=== PATIENT | male | born 1965 | race Caucasian/White ===

== ENCOUNTER 2020-02-13 11:50 | Observation (INO) ==
--- NOTE | 2020-02-09 11:25 | Anesthesiology Consultation ---
Date of Service February 09, 2020 Assessment & Plan (1) Encounter for pre-operative examination: Chart Review Chart Review: Acceptable Risk for Surgery (pending anesthesia evaluation and rapid Meehan test DOS ) and Patient NOT seen in Pre Admission Testing Pt initially seen in PAT dept on 12/29/19 for surgery scheduled 02/08/20. Pt had to be rescheduled due to bed space until 02/13/20. Pt was canceled after he arrived to hospital so new account number had to be made for procedure. *H/O difficult airway per patient; grade view III noted on 2010 TSA, good view with Glidescope. Per nursing assessment 12/21/2019, patient resides in [facility]. Travels to [facility] for work daily. Works construction. Wears mask while working and in public places. No known Covid positive contacts or Covid related symptoms. Pt's son attends [employer]- gets tested randomly for Covid- son last tested 11/30/19- tested Covid negative. Pt's initial preop Covid test 02/05/20= negative. Eval DOS for any increased PPE needed & 0 rule, if AGP. Rapid approved by Maria R, d/t patient's being rescheduled d/t bed space. History Surgery Operation Date: 02/13/20 14:00 Proposed Procedures p Left Total Knee Arthroplasty - Xu Arambula MD Height/Weight Height: 5 ft 10 in Weight: 127 kg Allergies Allergy/AdvReac Type Severity Reaction Status Date / Time No Known Allergies Allergy Unverified 12/21/19 09:25 Medications Home Medications Medication Instructions Recorded Confirmed Last Taken losartan 50 mg PO QAM 12/21/19 12/21/19 Unknown meloxicam 15 mg PO QAM 12/21/19 12/21/19 Unknown Past Medical History Medical History Anxiety no medications. Colon cancer "small polyp removed via colonoscopy +cancer) Hypertension Osteoarthritis Past Family History Family History Other No family history of adverse response to anesthesia Past Surgical History Surgical History H/O shoulder replacement left, [facility] [id number]. GRADE VIEW III, GLIDESCOPE USED. History of arthroscopy left knee History of colonoscopy History of endoscopic sinus surgery nasal polyps History of tonsillectomy S/P colonoscopic polypectomy With general anesthesia; was found on routine colo but felt too large for excision under MAC in endo suite. S/P umbilical hernia repair, follow-up exam Social History Smoking Status: Never smoker tobacco type: smokeless tobacco Hx Alcohol Use: Yes Alcohol type: beer alcohol intake frequency: a few times a week Hx Substance Use: No substance use type: does not use Testing Laboratory Results Laboratory Tests 12/29/19 12/29/19 12/29/19 13:38 13:38 13:38 WBC 7.74 Hgb 15.4 Hct 44.6 Plt Count 259 PT 11.0 INR 1.0 APTT 30.8 Sodium 139 Potassium 4.0 Chloride 106 Carbon Dioxide 26 BUN 16 Creatinine 1.00 Glucose 106 H Hemoglobin A1c 12/29/19 13:38 WBC Hgb Hct Plt Count PT INR APTT Sodium Potassium Chloride Carbon Dioxide BUN Creatinine Glucose Hemoglobin A1c 5.2 Electrocardiogram Date: 12/29/19 Findings: + NSR @ (63bpm) Chest X-Ray Date: 12/29/19 Findings: + NAD
--- NOTE | 2020-02-12 20:40 | History and Physical Report ---
DATE OF ADMISSION: 02/13/2020 CHIEF COMPLAINT: Chronic left knee pain. HISTORY OF PRESENT ILLNESS: This is a 55-year-old male patient of Dr. Arambula'davidson complaining of chronic left knee pain, longstanding, now progressively getting worse. The patient has failed conservative treatment including intraarticular injections, viscosupplementation, anti-inflammatories, home exercise program and the use of an student driving instructor brace. The patient has increased pain with weightbearing activities and his pain does interfere with his activities of daily living. The patient has been diagnosed with end-stage osteoarthritis per clinical and radiographic exams and wishes to proceed with a left total knee arthroplasty. PAST MEDICAL HISTORY: Hypertension and osteoarthritis. SOCIAL HISTORY: Nonsmoker and nondrinker. PAST SURGICAL HISTORY: Left shoulder replacement. FAMILY HISTORY: Noncontributory. MEDICATIONS: 1. Losartan 50 mg daily. 2. Mobic 15 mg daily. PHYSICAL EXAMINATION: GENERAL: Well-developed, well-nourished 55-year-old male in no acute distress. He is alert and oriented x3 and pleasant. HEENT: Normocephalic, atraumatic. Extraocular motions are intact. Pupils are equal, reactive to light. HEART: Regular rate and rhythm, no murmurs. LUNGS: Clear. ABDOMEN: Soft, nontender, bowel sounds present. EXTREMITIES: Left knee crepitation with range of motion, 5/5 strength. Range of motion of 0 to 125, varus deformity. Medial joint line tenderness. Neurologically and neurovascularly, he is intact in his left lower extremity. DIAGNOSES: Left knee end-stage osteoarthritis and hypertension. PLAN: The patient was advised of his diagnosis. Indications, risks, benefits, postop course have all been reviewed. The patient wished to proceed with a left total knee arthroplasty. Necessary consent forms, preoperative testing and clearances will be obtained.
[~2020-02-13 11:50] MED LIST: ACETAMINOPHEN 500 MG TAB PO SCH; BUPIVACAINE 0.25% 30 ML VIAL ONE; BUPIVACAINE 0.5 % 5 MG/1 ML PF 10ML VIAL ONE; CeleBREX 200 MG CAP PO SCH; DEXAMETHASONE SOD INJ 4 MG/ML VIAL ONE; EPINEPHrine INJ 1 MG/ML AMP ONE; FAMOTIDINE 20 MG TAB PO SCH; GABAPENTIN 600 MG DOSE PO SCH; GABAPENTIN 900 MG DOSE PO SCH; GENERAL ORDER PROBLEM SCH; LR 500ML BOLUS, THEN 15ML/HR IV SCH; METOCLOPRAMIDE HCL 10 MG TABLET PO SCH; ROPIVACAINE 0.5% HCL/PF 150 MG, BUPIVACAINE 0.5% MPF 30 ML, EPINEPHrine 30MG/30ML (OR U... INSTIL SCH; TRANEXAMIC ACID 1,000 MG **IV Intra-op IV SCH; TRANEXAMIC ACID 1,000 MG **IV Pre-op IV SCH; dexAMETHasone 4 MG TAB PO SCH
[2020-02-13] MEDS ORDERED: GABAPENTIN 300 MG CAP ONE (12:37)
[2020-02-13] MEDS ORDERED: fentaNYL citrate 100 MCG/2 ML VIAL ONE (13:22)
[2020-02-13] MEDS ORDERED: MIDAZOLAM HCL 1 MG/ML 2ML VIAL ONE ×2 (13:22→14:46)
[2020-02-13] MEDS ORDERED: ORTHO JOINT ANESTHETIC ONE (13:45)
[2020-02-13] MEDS ORDERED: BACITRACIN INJ 50,000 UNIT VIAL ONE (13:46)
--- NOTE | 2020-02-13 14:12 | History & Physical Bridge Note ---
Date of Service February 13, 2020 History & Physical Bridge Note I have examined the patient, reviewed the History & Physical and in the interval since the performance of the History & Physical I have noted the following changes of clinical significance: no changes noted
[2020-02-13] MEDS ORDERED: PROPOFOL IV EMULSION 10 MG/ML 20 ML VIAL IV ONE ×4 (14:46→15:41)
[2020-02-13] MEDS ORDERED: GLYCOPYRROLATE 0.2 MG/ML VIAL ONE (14:57)
[2020-02-13] MEDS ORDERED: KETAMINE 50 MG/5 ML SYRINGE ONE (14:57)
[2020-02-13] MEDS ORDERED: ONDANSETRON INJ 2 MG/ML 2 ML VIAL ONE (14:57)
[2020-02-13] MEDS ORDERED: fentaNYL citrate 100 MCG/2 ML VIAL IV PRN (15:54)
[2020-02-13] MEDS ORDERED: ePHEDrine sulfate 50 MG/ML AMP IV PRN (15:54)
[2020-02-13] MEDS ORDERED: ONDANSETRON INJ 2 MG/ML 2 ML VIAL IV PRN ×2 (15:54→18:50)
[2020-02-13] MEDS ORDERED: ATROPINE SULFATE 0.1 MG/ML 10ML SYR IV PRN (15:54)
[2020-02-13] MEDS ORDERED: BUPIVACAINE 0.5 % 5 MG/1 ML MPF 30ML VIAL ONE (16:22)
--- NOTE | 2020-02-13 17:16 | Post Operative Brief Note ---
Immediate Post Op Note v1 Date of Surgery February 13, 2020 Pre & Post Diagnosis Operation Date: 02/13/20 14:00 Pre-Op Diagnosis: Unilateral Primary Osteoarthritis, Left Knee Post-Op Diagnosis: Unilateral Primary Osteoarthritis, Left Knee I identified the patient and participated in the time-out.: Yes Procedure Operation Date: 02/13/20 14:00 Actual Procedures p Left Total Knee Arthroplasty(Left) - Xu Arambula MD Surgeon Xu Arambula MD Tube Buffer OSCAR Guzman Estimated Blood Loss 10 Findings Consistent with Post-Op Diagnosis Specimens Bone cuts Drains Hemovac Drain Anesthesia Type MAC Spinal Regional Complications none Disposition Accompanied Patient To Recovery: No Disposition: Recovery Room Overlapping Procedure I was immediately available: during the entire case.
--- NOTE | 2020-02-13 17:31 | Operative Report ---
Post Operative Report Pre & Post Diagnosis Operation Date: 02/13/20 14:00 Pre-Op Diagnosis: Unilateral Primary Osteoarthritis, Left Knee, obesity BMI 39.8 Post-Op Diagnosis: Unilateral Primary Osteoarthritis, Left Knee, prepatellar bursitis chronic, obesity BMI 39.8 I identified the patient and participated in the time-out.: Yes Procedure Operation Date: 02/13/20 14:00 Actual Procedures p Left Total Knee Arthroplasty(Left), prepatellar bursectomy, application superficial wound VAC- Xu Arambula MD Surgeon Xu Arambula MD Shaker Screen Operator OSCAR Guzman Estimated Blood Loss 10 Findings Consistent with Post-Op Diagnosis Specimens Bone cuts Drains 2 Hemovac Anesthesia Type MAC Spinal Regional Complications none Disposition Accompanied Patient To Recovery: No Disposition: Recovery Room Indications 55-year-old male who had an injury to his left knee had arthroscopic surgery with partial meniscectomy chondroplasty type procedure. He suffered progressive osteoarthritis over time and now is [id number]-[id number] medial compartment. Patient's had extensive conservative management including bracing therapy multiple injections. Description of Procedure Patient was taken to the operating room placed supine on the operating table and anesthetized under spinal MAC regional anesthesia. Exam under anesthesia demonstrated tight medial compartment no pseudolaxity varus knee stable ligaments other than some stretching out of the lateral collateral ligament. A pneumatic tourniquet was placed about the obese upper thigh of the left lower extremity. The left lower extremity was prepped and draped in usual fashion. The leg was elevated exsanguinated with an Esmarch bandage and the pneumatic was raised to 325 mm mercury. An anterior incision was made across the left knee. The skin was incised longitudinally subcutaneous flaps were elevated. Multiple chronic scarred bands of bursal tissue were identified crossing the prepatellar bursa and patella region down to the tibial tubercle. There was thickened chronic scarred inflamed prepatellar bursa tissue. Careful resection of all this thickened prepatellar bursitis was performed. Incision was then made through the medial retinaculum extending up into the mid third of the quadriceps tendon and extended down to the medial tibial tubercle. Intra-articular findings demonstrated varus knee with eburnated bone medial compartment loose body anterior to the tibia on the medial side moderate patellofemoral OA intact lateral compartment intact cruciate ligaments. The knee was exposed by excising the infrapatellar fat pad, excising the meniscal remnants and anterior cruciate ligament and loose body. Any inflamed synovial tissue was resected. The fat pad over the anterior femur was resected for placement of the component in that area. The lateral synovial bands were release. Patient had a tight knee and some synovial scar tissue from prior injury and surgery. The femur was exposed. The custom femoral cutting block was pinned in position. The distal femoral cutting block was applied. The distal femoral cut was made with the oscillating saw. The size 11, 4-in-1 cutting block was placed. The anterior and posterior chamfer cuts were made. The knee was extended and a subperiosteal peel lateral release was performed around the patella. The patella width was measured and width was reproduced using freehand cut technique. The 38 x 9.5 millimeter symmetrical patella was used. 3 drill holes are made for the pegs. The tibia was exposed. A custom tibial cutting block was positioned and drill holes were made for the cutting guide. Cutting guide was placed and the proximal cut was made with the oscillating saw. All osteophytes were resected. The lamina demographer was used to assess ligamentous balance and the ligaments were balanced in extension and flexion. This required a medial posterior medial release and pie crusting the MCL. The tibia was reexposed and measured for a size G tibial component. This was externally rotated in line with the tibial tubercle and the fixation pins were drilled. The proximal tibia was fashioned with the drill and punch. The size 11 CR femoral trial was inserted. The trial MC inserts were used. The 11 mm insert gave balanced ligaments through full range of motion. The patella tracked some liftoff slightly so I did a lateral release leaving the synovium intact and the patella tracked completely centrally with no touch technique. the trials were removed. The orthomix anesthetic cocktail was injected per protocol. The knee was then copiously irrigated with pulsatile lavage antibiotic solution with bacitracin. The final components were cemented with Simplex cement. The final components were Jahaira persona size 11 left CR femur, size G left tibia, left size 11 MC tibial bearing insert, 38 x 9.5 mm symmetrical patella. After the cement cured with the knee in full extension the Betadine soak was used per protocol. The knee joint was copiously irrigated with antibiotic solution with bacitracin. 2 drains were brought out laterally and connected to a Hemovac. The quadriceps tendon and medial retinaculum were closed with interrupted [id number] #1 Vicryl sutures. The knee was taken through a full range of motion and repair was secure. The subcutaneous tissues were closed with 2-0 Vicryl sutures and skin was closed with jay. A negative pressure superficial wound VAC was applied and the patient tolerated the procedure well. Nick MOORE my physician personnel security assistant, assisted in soft tissue retraction instrument management leg positioning the closure and will participate in the postoperative care of the patient. I attest to the content of the Intraoperative Record and any orders documented therein. Any exceptions are noted below.
--- NOTE | 2020-02-13 17:47 | XRay Report ---
XR knee LT 1 or 2V routine HISTORY: 55 years-old Male Surgical Post Op [knee total joint arthroplasty COMPARISON: None TECHNIQUE: 2 views of the left knee FINDINGS: Left knee total joint arthroplasty and patella resurfacing. Anterior midline skin jay are noted a long with expected postsurgical soft tissue swelling and deep tissue air with surgical drainage mahamed ter. No acute fracture or unexpected opaque foreign body. IMPRESSION: Left knee total joint arthroplasty and patella resurfacing with expected postoperative ch anges. ACT 112: Negative or not required by law. The above report was generated using voice recognition software. It may contain grammatical, syntax o r spelling errors. Electronically signed by: Chente Oh M.D. 02/13/2020 5:45 PM
--- NOTE | 2020-02-13 18:11 | Anesthesiology Progress Note ---
Date of Service February 13, 2020 Anesthesia Post Procedure Vital Signs Vital Signs: Temp Pulse Pulse Resp BP Pulse Ox 02/13/20 18:00 88 16 141/81 H 92 02/13/20 17:45 36.3 C L 77 16 134/82 94 02/13/20 17:35 77 17 122/81 92 02/13/20 17:25 84 18 125/77 92 02/13/20 17:17 36.6 C 88 18 130/90 95 02/13/20 12:55 36.7 C 74 18 147/99 H 93 02/13/20 12:19 36.9 C 75 18 150/97 H 95 Transfer of Care Handoff Completed per policy Notes Mental Status: alert / awake / arousable and participated in evaluation Patient Amnestic to Procedure: Yes Nausea / Vomiting: adequately controlled Pain: adequately controlled Airway Patency, RR, SpO2: stable & adequate BP & HR: stable & adequate Hydration State: stable & adequate Anesthetic Complications: no major complications apparent and Pt Satisfied with anesthetic care
[2020-02-13] MEDS ORDERED: bisacodyL 10 MG SUPP PR PRN (18:50)
[2020-02-13] MEDS ORDERED: NALOXONE HCL 0.4 MG/1 ML VIAL/CARP IV PRN (18:50)
[2020-02-13] MEDS ORDERED: HYDROmorphone INJ 0.5 MG/0.5 ML SYR IV PRN (18:50)
[2020-02-13] MEDS ORDERED: MAGNESIUM HYDROXIDE SUSP 30 ML UDC PO PRN (18:50)
[2020-02-13] MEDS ORDERED: diphenhydrAMINE Capsule 25 MG CAP PO PRN (18:50)
[2020-02-13] MEDS: SODIUM CHLORIDE 0.9% 1000ML 1,000 ML IV SCH (19:15)
--- NOTE | 2020-02-13 19:43 | Consultation ---
Date of Consultation February 13, 2020 Assessment & Plan (1) Status post total knee replacement, left: S/P L TKA POD # [address] Arambula EBL 10ml; Hemovac 40ml Tolerated procedure well Pain/wound management per Ortho Activity and therapy as directed by Ortho Encourage incentive spirometry and wean oxygen as able Monitor H&H (2) Hypertension: BP mildly elevated 150/90, likely in setting of pain Continue losartan Monitor (3) Mixed hyperlipidemia: Patient currently not on cholesterol-lowering medication Last fasting lipid panel 05/10/2019 revealed total cholesterol 225, LDL 152, HDL 32, triglycerides 204 Implement heart healthy diet (4) Tobacco abuse: Daily chewing tobacco user Encourage tobacco cessation (5) Obesity (BMI 30-39.9): BMI 39.8 encourage diet and lifestyle modifications (6) DVT prophylaxis: ASA twice daily per Ortho Disposition: Per primary Follow-up: PCP Dr. Faye upon discharge Patient was seen and examined in collaboration with Dr. Harkins, please see addendum Thank you for this consultation. We will follow the patient with you during their hospital stay. You can reach a [facility]/10 via pager @ [phone]. Supervising Physician Co-Signing Physician Notes Attending addendum: Patient seen and examined at bedside, care coordinated with JOANN Alexander This is a 55-year-old male status post left knee surgery for advanced DJD Recovering well postoperatively Physical exam: As per Arabella Ryder PA-C DJD of left knee: Status post knee replacement surgery Continue pain control PT OT as per orthopedics Hypertension: Continue outpatient meds: Losartan Patient remains medically stable, we will continue to follow during his hospital stay. Katherine Harkins MD History of Present Illness Requesting Physician: Dr. Arambula Reason for Consultation: Postop medical management Attending Physician: Xu Arambula MD History of Present Illness This is a 55-year-old male who has significant past medical history of HTN, mixed dyslipidemia, metabolic syndrome, chronic sinusitis, tobacco abuse disorder who presents for elective left total knee arthroscopy. We have been consulted for medical management. Currently he has no acute concerns or complaints. He feels well postoperatively and requesting meal. He currently denies any pain to the left knee, numbness or tingling. He has regained feeling to the left leg. He denies fever, chills, sweats, lightheadedness, dizziness, chest pain, shortness of breath, cough, nausea, vomiting, abdominal pain, diarrhea, melena, dysuria, increased urgency or frequency with urination. He has urinated postoperative without difficulty. Prior to procedure denies difficulty with BMs. Of significance he does chew half a can of tobacco daily. He denies any smoking. He does drink alcohol 1-2 times a week. His last drink was approximately 1 week ago. Mostly beer. He does have history of hypertension which he takes losartan as outpatient. Outpt records from [facility] reviewed. Had med clearance by Dr. Faye 01/12/20. Allergies Allergy/AdvReac Type Severity Reaction Status Date / Time No Known Allergies Allergy Verified 02/13/20 12:17 Home Medications Medication Instructions Recorded Confirmed Type losartan 50 mg PO QAM 12/21/19 02/13/20 History meloxicam 15 mg PO QAM 12/21/19 02/13/20 History Patient History Medical History (Updated 02/13/20 @ 19:48 by Arabella Gamble PA-C) Anxiety no medications. Colon cancer "small polyp removed via colonoscopy +cancer) Hypertension Mixed hyperlipidemia Osteoarthritis Tobacco abuse Surgical History (Updated 02/13/20 @ 19:42 by Arabella Gamble PA-C) H/O shoulder replacement left, [facility] [id number]. GRADE VIEW III, GLIDESCOPE USED. History of arthroscopy left knee History of colonoscopy History of endoscopic sinus surgery nasal polyps History of tonsillectomy S/P colonoscopic polypectomy With general anesthesia; was found on routine colo but felt too large for excision under MAC in endo suite. S/P umbilical hernia repair, follow-up exam Family History Father HLD (hyperlipidemia) Grandfather (Paternal) Cancer Grandmother (Maternal) Stroke Other No family history of adverse response to anesthesia Social History (Updated 02/13/20 @ 19:38 by Arabella Gamble PA-C) Smoking Status: Never smoker Second Hand Exposure: No; Do You Dip or Chew Tobacco: Yes; Hx Alcohol Use: Yes Alcohol type: beer Hx Substance Use: No Preferred Language: Upper Sorbian Communication Ability: Effective Marketing Manager Required: No Beliefs That Will Affect Care: None Current Living Situation: Spouse Feels Safe at Home: Yes Assistive Devices: Glasses Review of Systems Review of Systems: All systems reviewed & are unremarkable except as noted in HPI & below Physical Exam Physical Exam: Constitutional: WD/WN, vitals as above, NAD, sitting up in bed, pleasant, conversing easily Head: Normocephalic, Atraumatic Eyes: PERRL, conjunctivae normal, anicteric sclerae ENMT: external ear and nose normal, oropharynx normal Neck: trachea midline, no thyromegaly normal visual inspection Respiratory: normal respiratory effort, lungs clear, no audible wheeze, rales or rhonchi. Normal insp/exp effort, no accessory muscle use Cardiovascular: RRR, no edema, SCD/TEDs in place, Vessels: no JVD or carotid bruit Chest: normal inspection of chest Abdomen:protuberant abd, soft, nontender, ND Musculoskeletal: no cyanosis or clubbing, AROM to ext x 3, LLE not tested but is NVI distal to incision, L TKA Dressing CDI, hemovac in place with serosang drainage Skin: no rashes, warm and dry normal turgor Neurologic: PERRL, EOMI, accommodation nl, no face palsy, no dysarthria CN's II-XI intact bilaterally and moves all extremities Psychiatric: A+Ox3, euthymic affect Lymphatic: no cervical or axillary lymphadenopathy : deferred Results & Data (MN) Vital Signs (Past 12 Hours) Vital Signs Temp Pulse Pulse Resp BP Pulse Ox 02/13/20 18:50 36.4 C L 71 16 150/90 H 97 02/13/20 18:30 71 15 134/90 93 02/13/20 18:15 67 17 146/95 H 93 02/13/20 18:00 88 16 141/81 H 92 02/13/20 17:45 36.3 C L 77 16 134/82 94 02/13/20 17:35 77 17 122/81 92 02/13/20 17:25 84 18 125/77 92 02/13/20 17:17 36.6 C 88 18 130/90 95 02/13/20 12:55 36.7 C 74 18 147/99 H 93 02/13/20 12:19 36.9 C 75 18 150/97 H 95 Laboratory Results Preoperative lab work 12/29/2019 Hemoglobin 15.4, A1c 5.2, creatinine 1.0 Covid screen negative Diagnostic Findings CXR: FINDINGS: The heart is at the upper limits of normal in size. There is no failure. There is no focal pulmonary consolidation. There are no pleural effusions. There is a calcified left lower lobe granuloma. Degenerative changes are present within the dorsal spine..[ IMPRESSION: No active disease in the chest. Knee Xray L: FINDINGS: Left knee total joint arthroplasty and patella resurfacing. Anterior midline skin jay are noted along with expected postsurgical soft tissue swelling and deep tissue air with surgical drainage catheter. No acute fracture or unexpected opaque foreign body. IMPRESSION: Left knee total joint arthroplasty and patella resurfacing with expected postoperative changes. Medications Administered Discontinued Medications Acetaminophen (Acetaminophen 500 Mg Tab) 1,000 mg PO PREOP BENJI Stop: 02/13/20 18:00 Last Admin: 02/13/20 12:39 Dose: 1,000 mg Documented by: [id number] Bacitracin (Bacitracin Inj 50,000 Unit Vial) Confirm Administered Dose 50,000 units .ROUTE .STK-MED ONE Stop: 02/13/20 13:47 Last Admin: 02/13/20 16:58 Dose: 50,000 units Documented by: [id number] Bupivacaine HCl (Bupivacaine 0.5 % 5 Mg/1 Ml Mpf 30ml Vial) Confirm Administered Dose 30 ml .ROUTE .STK-MED ONE Stop: 02/13/20 16:23 Last Admin: 02/13/20 16:31 Dose: 30 ml Documented by: [id number] Celecoxib (Celebrex 200 Mg Cap) 200 mg PO PREOP BENJI Stop: 02/13/20 18:00 Last Admin: 02/13/20 12:39 Dose: 200 mg Documented by: [id number] Dexamethasone (Dexamethasone 4 Mg Tab) 8 mg PO PREOP BENJI Stop: 02/13/20 18:00 Last Admin: 02/13/20 12:39 Dose: 8 mg Documented by: [id number] Famotidine (Famotidine 20 Mg Tab) 20 mg PO PREOP BENJI Stop: 02/13/20 18:00 Last Admin: 02/13/20 12:39 Dose: 20 mg Documented by: [id number] Fentanyl Citrate (Fentanyl Citrate 100 Mcg/2 Ml Vial) 25 mcg IV Q5M PRN PRN Reason: PACU Use Only-Pain Stop: 02/13/20 23:54 Last Admin: 02/13/20 18:24 Dose: 25 mcg Documented by: [id number] Gabapentin (Gabapentin 300 Mg Cap) Confirm Administered Dose 600 mg .ROUTE .STK- MED ONE Stop: 02/13/20 12:38 Last Admin: 02/13/20 12:39 Dose: 600 mg Documented by: [id number] Gabapentin (Gabapentin 900 Mg Dose) 900 mg PO PREOP BENJI Stop: 02/13/20 18:00 Last Admin: 02/13/20 18:56 Dose: Not Given Documented by: [id number] Ropivacaine 150 mg/Bupivacaine HCl 30 ml/Epinephrine HCl 0.15 mg/Ketorolac Tromethamine 30 mg/Dexamethasone 4 mg/ Ketamine HCl 10 mg/ Clonidine HCl 100 mcg/ Sodium Chloride 93.35 mls @ 0 mls/hr INSTIL PREOP BENJI Stop: 02/13/20 06:01 Last Admin: 02/13/20 16:28 Dose: 93.35 mls/hr Documented by: [id number] Tranexamic Acid (Tranexamic Acid / 0.7% Nacl) 1,000 mg in 100 mls @ 600 mls/hr IV TODAY@0600 BENJI Stop: 02/13/20 18:00 Last Infusion: 02/13/20 14:24 Dose: 0 mls/hr Documented by: [id number] Admin: 02/13/20 14:13 Dose: 600 mls/hr Documented by: [id number] Tranexamic Acid (Tranexamic Acid / 0.7% Nacl) 1,000 mg in 100 mls @ 600 mls/hr IV TODAY@0600 BENJI Stop: 02/13/20 18:00 Last Infusion: 02/13/20 16:34 Dose: 0 mls/hr Documented by: [id number] Admin: 02/13/20 16:21 Dose: 600 mls/hr Documented by: [id number] Lactated Ringer's (Lr) 1,000 mls @ 15 mls/hr IV .Q24H BENJI Stop: 02/13/20 18:00 Last Infusion: 02/13/20 14:38 Dose: 0 mls/hr Documented by: [id number] Admin: 02/13/20 12:38 Dose: 15 mls/hr Documented by: [id number] Cefazolin Sodium (Ancef 3000mg) 72.5 mls @ 130 mls/hr IV PREOP BENJI; Protocol Stop: 02/13/20 18:00 Last Admin: 02/13/20 14:48 Dose: 130 mls/hr Documented by: [id number] Metoclopramide HCl (Metoclopramide Hcl 10 Mg Tablet) 10 mg PO PREOP BENJI Stop: 02/13/20 18:00 Last Admin: 02/13/20 12:39 Dose: 10 mg Documented by: [id number] Miscellaneous (Ortho Joint Anesthetic ) Confirm Administered Dose 1 ea .ROUTE .STK-MED ONE Stop: 02/13/20 13:46 Last Admin: 02/13/20 16:29 Dose: Not Given Documented by: [id number] ECG Rate (beats per minute): 63 Rhythm: normal sinus
[2020-02-13] MEDS ORDERED: SENNA 8.6 MG TAB PO SCH (21:00)
[2020-02-13] MEDS: ACETAMINOPHEN 500 MG TAB PO SCH (22:00)
[2020-02-13] MEDS: CeleBREX 200 MG CAP PO SCH (22:00)
[2020-02-13] MEDS: ASPIRIN 81 MG ECTAB PO SCH (22:01)
[2020-02-13] MEDS: ceFAZolin 2000MG 2,000 MG/15 ML SYR IV SCH (22:01)
[2020-02-13] MEDS: DOCUSATE SODIUM 100 MG CAP PO SCH (22:01)
[2020-02-13] MEDS: oxyCODONE HCL IR 5 MG TAB (IMMEDIATE RELEASE) PO PRN (23:36)
[2020-02-14] MEDS: ACETAMINOPHEN 500 MG TAB PO SCH ×2 (06:01→13:32)
[2020-02-14] MEDS: ceFAZolin 2000MG 2,000 MG/15 ML SYR IV SCH (06:01)
[2020-02-14] MEDS: oxyCODONE HCL IR 5 MG TAB (IMMEDIATE RELEASE) PO PRN ×2 (06:11→10:20)
[2020-02-14] MEDS: SODIUM CHLORIDE 0.9% 1000ML 1,000 ML IV SCH (06:12)
[2020-02-14 06:19] LABS: Hematocrit (blood only) 41.4 % (42-52); Hemoglobin 14.2 g/dL (14.0-18.0); Mean Corpuscular Hemoglobin 29.8 pg (25-34); Mean Corpuscular Hgb Conc 34.3 g/dL (32-36); Mean Platelet Volume 10.2 fL (7.4-10.4); Platelet Count 282 K/uL (130-400); RDW Coefficient of Variation 13.1 % (11.5-14.5); Red Blood Count 4.76 M/uL (4.7-6.1); White Blood Count 14.95 K/uL (4.8-10.8)
[2020-02-14 06:37] LABS: Calcium 8.3 mg/dl (8.5-10.1); Creatinine Clr Calc Pharmacy 127.8 ml/min; Est GFR (African American) 112.6; Est GFR (Non-African American) 97.2; Potassium 3.9 mmol/L (3.5-5.1)
--- NOTE | 2020-02-14 07:49 | Orthopedic Progress Note ---
Date of Service February 14, 2020 Assessment & Plan (1) Osteoarthritis of left knee: Postop day 1 status post left total knee arthroplasty. Leukocytosis-patient is asymptomatic at this time. Is likely secondary to surgical stress and preoperative steroids. PT/OT protocols. Weightbearing as tolerated. DVT prophylaxis-aspirin p.o. twice daily, BONNIE Abdullahi. Pain management as written. DC planning-patient is planning on outpatient PT upon discharge. Admission and Anticipated Discharge Date Admission Date: February 13, 2020 Subjective Postop day 1 Patient sitting up in bed watching TV. Having a small amount of pain this morning around the knee but he states it is mild. Denies any shortness of breath, chest pain, lightheadedness. No other complaints at this time. Physical Exam Physical Exam: Dressings are clean, dry, and intact. Calves are soft and nontender. Neurovascular is intact. Toes are mobile. He has good dorsiflexion and plantarflexion of the left foot and ankle. Hemovac drainage was 230 mL from the previous shift Results & Data ([facility]) Vital Signs (Past 12 Hours) Vital Signs Temp Pulse Resp BP Pulse Ox 02/14/20 03:20 36.5 C 73 16 149/88 H 95 02/13/20 22:47 36.5 C 94 H 18 149/97 H 96 02/13/20 21:35 36.3 C L 92 H 18 164/92 H 96 02/13/20 20:33 36.7 C 76 16 154/85 H 94 02/13/20 19:58 36.4 C L 77 16 152/91 H 93 Laboratory Results Laboratory Results WBC 14.95 K/uL (4.8-10.8) H 02/14/20 05:28 RBC 4.76 M/uL (4.7-6.1) 02/14/20 05:28 Hgb 14.2 g/dL (14.0-18.0) 02/14/20 05:28 Hct 41.4 % (42-52) L 02/14/20 05:28 MCV 87.0 fL (80-100) 02/14/20 05:28 MCH 29.8 pg (25-34) 02/14/20 05:28 MCHC 34.3 g/dL (32-36) 02/14/20 05:28 RDW Std Deviation 42.0 fL (36.4-46.3) 02/14/20 05:28 RDW Coeff of Sunshine 13.1 % (11.5-14.5) 02/14/20 05:28 Plt Count 282 K/uL (130-400) 02/14/20 05:28 MPV 10.2 fL (7.4-10.4) 02/14/20 05:28 Sodium 138 mmol/L (136-145) 02/14/20 05:28 Potassium 3.9 mmol/L (3.5-5.1) 02/14/20 05:28 Chloride 107 mmol/L (98-107) 02/14/20 05:28 Carbon Dioxide 25 mmol/L (21-32) 02/14/20 05:28 Anion Gap 6.0 (3-11) 02/14/20 05:28 BUN 18 mg/dl (7-18) 02/14/20 05:28 Creatinine 0.87 mg/dl (0.6-1.4) 02/14/20 05:28 Est Cr Clr Drug Dosing 127.8 ml/min 02/14/20 05:28 Est GFR ( Amer) 112.6 02/14/20 05:28 Est GFR (Non-Af Amer) 97.2 02/14/20 05:28 BUN/Creatinine Ratio 21.0 (10-20) H 02/14/20 05:28 Glucose 132 mg/dl (70-99) H 02/14/20 05:28 Calcium 8.3 mg/dl (8.5-10.1) L 02/14/20 05:28 COVID-19 Eval Order Covid19 IDNow [facility] 02/13/20 Unknown SARS-CoV-2, RNA, NAAT NEGATIVE (NEGATIVE) 02/13/20 Unknown Blood Type A Positive 02/13/20 12:15 Antibody Screen NEGATIVE 02/13/20 12:15
[2020-02-14] MEDS ORDERED: MULTIVITAMIN TAB PO SCH (09:00)
[2020-02-14] MEDS ORDERED: LOSARTAN POTASSIUM 50 MG TAB PO SCH (09:00)
[2020-02-14] MEDS: DOCUSATE SODIUM 100 MG CAP PO SCH (09:12)
[2020-02-14] MEDS: CeleBREX 200 MG CAP PO SCH (09:13)
[2020-02-14] MEDS: ASPIRIN 81 MG ECTAB PO SCH (09:13)
[2020-02-14 12:04] VITALS: BP 150/83; PULSE 81; TEMP 97.9; O2SAT 95
--- NOTE | 2020-02-14 14:19 | Hospitalist Progress Note ---
Date of Service February 14, 2020 Assessment & Plan (1) Status post total knee replacement, left: S/P day # 1 Left Total Knee Arthroplasty, prepatellar bursectomy, application superficial wound VAC performed by Dr Arambula No post complication pain control Will discharge home today with the hemovac and follow up tomorrow at Dr. Arambula's office to remove the Vac fall precaution PT/OT as per Ortho recommendation Continue incentive spirometry (2) Hypertension: BP mildly elevated 150/90, likely in setting of pain Continue losartan Continue monitor BP (3) Mixed hyperlipidemia: Patient currently not on cholesterol-lowering medication Last fasting lipid panel 05/10/2019 revealed total cholesterol 225, LDL 152, HDL 32, triglycerides 204 Continue follow a low cholesterol diet (4) Tobacco abuse: Daily chewing tobacco user Counseling on tobacco cessation (5) Obesity (BMI 30-39.9): BMI 39.8 encourage diet and lifestyle modifications (6) DVT prophylaxis: ASA twice daily per Ortho Disposition: Per primary Follow-up: PCP Dr. Faye upon discharge Thank you for this consultation. We will follow the patient with you during their hospital stay. You can reach a member of the [facility] Hospitalist Team 19/10 via pager @ [phone]. Admission and Anticipated Discharge Date Admission Date: February 13, 2020 Subjective Pt was seen and examined Sitting in bed with no distress Pt said that pain is tolerable He said that he is doing ok Denies any chest pain, palpitation, dizziness and SOB Physical Exam Physical Exam: General- No acute distress Head- atraumatic Eyes- PERRL, EOMI, ENT- oropharynx clear Neck- supple, no JVD Lungs- clear to auscultation Heart- regular rhythm; no murmur Abdomen- normal bowel sounds, soft, nontender Extremities- no calf tenderness Neuro- alert, oriented x 3; PERRL, EOMI; no facial palsy; no dysarthria Skin- warm & dry Results & Data Results & Data ([facility]) Vital Signs (Past 12 Hours) Vital Signs Temp Pulse Resp BP BP Pulse Ox 02/14/20 12:04 36.6 C 81 16 150/83 H 95 02/14/20 09:11 87 136/87 02/14/20 08:13 36.7 C 69 16 135/84 92 02/14/20 03:20 36.5 C 73 16 149/88 H 95
== END 2020-02-14 15:08 | disposition home or self-care (01) ==
LOC: 3E 11:50 → ASU 11:50

== ENCOUNTER 2024-01-05 08:49 | Observation (INO) ==
--- NOTE | 2024-01-04 08:38 | Anesthesiology Consultation ---
Date of Service January 04, 2024 Assessment & Plan (1) Encounter for pre-operative examination: - Infectious disease screening: Per assessment on 12/30/23: No known recent infectious disease contacts or current infectious disease symptoms. - Hx glidescope intubation: Umbilical hernia repair open with mesh (04/13/13): Grade I view, Glidescope#4, ETT 8.0 at [facility] [place]. - PCP visit (12/31/23): "Pt has acceptable risk for this low risk surgery" Chart Review Chart Review: Acceptable Risk for Surgery and Patient NOT seen in Pre Admission Testing History Surgery Operation Date: 01/05/24 09:45 Proposed Procedures p Left Shoulder Convert a Total Shoulder Arthroplasty to Reverse Total Shoulder Arthroplasty with Extensive Debridement - Xu Arambula MD Height/Weight Height: 5 ft 10 in Weight: 122.47 kg Allergies Allergy/AdvReac Type Severity Reaction Status Date / Time No Known Allergies Allergy Verified 12/30/23 13:46 Medications Home Medications Medication Instructions Recorded Confirmed Last Taken losartan 50 mg tablet 50 mg PO QAM 12/21/19 12/30/23 01/21/21 05:30 atorvastatin 10 mg tablet 10 mg PO QAM 12/19/20 12/30/23 01/21/21 05:30 Allergy Tab 1 tab PO DAILY 09/14/22 12/30/23 Unknown acetaminophen 500 mg tablet 1,000 mg PO Q8H PRN Pain 09/14/22 12/30/23 Unknown Past Medical History Medical History Anxiety "Well controlled" No meds Colon cancer Hypertension Per records Mixed hyperlipidemia Per records Obesity (BMI 30-39.9) Osteoarthritis Past Family History Family History Father HLD (hyperlipidemia) Grandfather (Paternal) Cancer Grandmother (Maternal) Stroke Other No family history of adverse response to anesthesia Past Surgical History Surgical History (Updated 01/04/24 @ 08:36 by Tresa Cleary) H/O shoulder replacement Left History of arthroscopy left knee History of colonoscopy History of endoscopic sinus surgery nasal polyps History of tonsillectomy History of total knee replacement Left 01/2020 Right 2020 Hx of umbilical hernia repair S/P colonoscopic polypectomy With general anesthesia; was found on routine colo but felt too large for excision under MAC in endo suite Social History Smoking Status: Never smoker tobacco type: smokeless tobacco Do You Dip or Chew Tobacco: Yes (advised) Hx Alcohol Use: Yes Alcohol type: beer alcohol intake frequency: a few times a week Hx Substance Use: No substance use type: does not use Lab Results Anesthesia Preop Results Results Anesthesia Widget: WBC 8.46 K/ul (4.8-10.8) 12/31/23 Hgb 14.9 g/dl (14.0-18.0) 12/31/23 Hct 43.5 % (42.0-52.0) 12/31/23 Plt 278 K/uL (130-400) 12/31/23 Na 139 mmol/L (136-145) 12/31/23 K 3.7 mmol/L (3.5-5.1) 12/31/23 Cl 104 mmol/L (98-107) 12/31/23 CO2 27 mmol/L (21-32) 12/31/23 BUN 18 mg/dl (6-23) 12/31/23 Creat 0.94 mg/dl (0.6-1.4) 12/31/23 Glucose Level 111 mg/dl (70-99(Fasting)) H 12/31/23 PT 11.4 Seconds (9.0-12.0) 12/31/23 PTT 28 Seconds (21-31) 12/31/23 INR 1.1 (0.9-1.1) 12/31/23 Urine Color Yellow 12/31/23 Urine Appearance Clear (Clear) 12/31/23 Urine pH 6.5 (4.5-7.5) 12/31/23 Urine Specific [place] 1.022 (1.000-1.030) 12/31/23 Urine Protein Negative (Negative) 12/31/23 Urine Glucose (UA) Negative (Negative) 12/31/23 Urine Ketones Negative (Negative) 12/31/23 Urine Blood Negative (Negative) 12/31/23 Urine Nitrite Negative (Negative) 12/31/23 Urine Bilirubin Negative (Negative) 12/31/23 Urine Urobilinogen Negative (Negative) 12/31/23 Urine Leukocyte Esterase Negative (Negative) 12/31/23 Blood Type A Positive 12/31/23 Testing Electrocardiogram Date: 01/03/24 Findings: + NSR @ (81) Chest X-Ray Date: 12/31/23 FINDINGS: Lung volumes are normal. Lungs are clear. There is no pneumothorax or pleural effusion. Cardiomegaly is unchanged. Mediastinal contours are normal. There is no evidence for pulmonary edema. Left shoulder arthroplasty is partially imaged. IMPRESSION: No acute cardiopulmonary findings.
--- NOTE | 2024-01-04 19:33 | History & Physical Report ---
Date of Service January 04, 2024 Assessment & Plan (1) Traumatic complete tear of rotator cuff: Plan: Acute traumatic rotator cuff tear status post anatomic total shoulder replacement with evidence of osteolysis of the glenoid and humeral component which were pre-existing to the shoulder injury and rotator cuff tear however this and trauma may have led to loosening of the glenoid. Revision of the anatomic replacement to a reverse total shoulder replacement is treatment of choice for this condition. Plan currently she just augmented glenoid baseplate and possibly some bone substitute may be required to fill in any bone defect. Encounter type: initial encounter Laterality: left Qualified Code(s): S46.012A - Strain of muscle(s) and tendon(s) of the rotator cuff of left shoulder, initial encounter (2) Loosening of total shoulder replacement: Encounter type: initial encounter Qualified Code(s): T84.038A - Mechanical loosening of other internal prosthetic joint, initial encounter; Z96.619 - Presence of unspecified artificial shoulder joint (3) Osteolysis of left shoulder: History of Present Illness Primary Care Provider: Marya Faye, DO 58-year-old male who had an injury at work when he fell on his outstretched left arm felt as though he dislocated his shoulder. He has had significant pain weakness and inability raise his arm overhead. Minimal improvement since this injury which occurred at work. Patient had index total shoulder replacement procedure on that left shoulder 02/25/2011. Patient denies headaches, sweats, fevers, chills, double vision, blurred vision, cough, sore throat, dysphagia, chest pain, sob, wheezing, n/v/d/c, numbness, tingling, fatigue, urinary symptoms, mood disorders. ROS positive for mild snoring and being difficult intubation with anesthesia Allergies Allergy/AdvReac Type Severity Reaction Status Date / Time No Known Allergies Allergy Verified 12/30/23 13:46 Home Medications Medication Instructions Recorded Confirmed Type losartan 50 mg tablet 50 mg PO QAM 12/21/19 12/30/23 History atorvastatin 10 mg tablet 10 mg PO QAM 12/19/20 12/30/23 History Allergy Tab 1 tab PO DAILY 09/14/22 12/30/23 History acetaminophen 500 mg tablet 1,000 mg PO Q8H PRN Pain 09/14/22 12/30/23 History Past Med/Surg History Problem List (Updated 01/04/24 @ 19:50 by Xu Arambula MD) 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 Traumatic complete tear of rotator cuff Encounter for pre-operative examination Medical History Obesity (BMI 30-39.9) Mixed hyperlipidemia Per records Hypertension Per records Osteoarthritis Colon cancer Anxiety "Well controlled" No meds Surgical History Hx of umbilical hernia repair History of total knee replacement Left 01/2020 Right 2020 S/P colonoscopic polypectomy With general anesthesia; was found on routine colo but felt too large for excision under MAC in endo suite H/O shoulder replacement Left History of arthroscopy left knee History of colonoscopy History of endoscopic sinus surgery nasal polyps History of tonsillectomy Family History Father HLD (hyperlipidemia) Grandfather (Paternal) Cancer Grandmother (Maternal) Stroke Other No family history of adverse response to anesthesia Social History Smoking Status: Never smoker Second Hand Exposure: No; Do You Dip or Chew Tobacco: Yes (advised); Tobacco Cessation Education Requested by Patient: No Hx Alcohol Use: Yes Alcohol type: beer Hx Substance Use: No Preferred Language: [place] Communication Ability: Effective House Officer Required: No Beliefs That Will Affect Care: None marital status: Current Living Situation: Spouse current occupational status: employed current occupation: CONSTRUCTION WORK Other Information That Helps Us Care for You: No Feels Safe at Home: Yes Safety Concerns: Feels Safe At This Time Assistive Devices: Glasses Assistive Devices Comment: glasses for driving only Review of Systems All systems reviewed & are unremarkable except as noted in HPI & below Physical Exam Constitutional: WD/WN, vitals as above Respiratory: normal respiratory effort; no respiratory distress Cardiovascular: Rate/Rhythm: regular rate and regular rhythm Musculoskeletal: Left shoulder is protracted and depressed with benign-appearing surgical scars active and passive painful range of motion. Active abduction 40 degrees active flexion 40 degrees passive flexion 80 degrees passive abduction 60 degrees. Shoulder is weak with diminished strength and positive belly press test. Skin: no rashes, warm and dry Neurologic: normal touch/pain/proprioception Psychiatric: A+Ox3, euthymic affect Results & Data Laboratory Results CBC sed rate CRP normal Diagnostic Findings Radiographs demonstrate normally located shoulder with osteolysis around the calcar and proximal humerus shaft with no loosening of the humeral component. There is some lucency and erosion inferior to the glenoid component concerning for osteolysis around that component as well and could have some micromotion based on bone scan findings which are not suggestive of infection but could be suggestion of loosening. Implant alignment based on review of previous x-rays demonstrate no change in alignment of the glenoid component. Preop CT scanning with blueprint preoperative templating suggests contained defect. Ultrasound evaluation demonstrates complete tearing subscapularis tendon with failure of repair with partial tearing of the supraspinatus and infraspinatus.
[~2024-01-05 08:49] MED LIST changes: -ACETAMINOPHEN 500 MG TAB PO SCH; -BUPIVACAINE 0.25% 30 ML VIAL ONE; -CeleBREX 200 MG CAP PO SCH; -DEXAMETHASONE SOD INJ 4 MG/ML VIAL ONE; -EPINEPHrine INJ 1 MG/ML AMP ONE; -FAMOTIDINE 20 MG TAB PO SCH; -GABAPENTIN 600 MG DOSE PO SCH; -GABAPENTIN 900 MG DOSE PO SCH; -GENERAL ORDER PROBLEM SCH; -LR 500ML BOLUS, THEN 15ML/HR IV SCH; -METOCLOPRAMIDE HCL 10 MG TABLET PO SCH; -ROPIVACAINE 0.5% HCL/PF 150 MG, BUPIVACAINE 0.5% MPF 30 ML, EPINEPHrine 30MG/30ML (OR U... INSTIL SCH; -TRANEXAMIC ACID 1,000 MG **IV Intra-op IV SCH; -TRANEXAMIC ACID 1,000 MG **IV Pre-op IV SCH; -dexAMETHasone 4 MG TAB PO SCH
[2024-01-05] MEDS: GABAPENTIN 600 MG DOSE PO SCH (09:55)
[2024-01-05] MEDS: CeleBREX 200 MG CAP PO SCH (09:55)
[2024-01-05] MEDS: FAMOTIDINE 20 MG TAB PO SCH (09:55)
[2024-01-05] MEDS: dexAMETHasone**PF** 10 MG/ML VIAL IV SCH (09:56)
[2024-01-05] MEDS: ACETAMINOPHEN 500 MG TAB PO SCH ×2 (09:56→22:12)
[2024-01-05] MEDS: METOCLOPRAMIDE HCL 10 MG TABLET PO SCH (09:56)
[2024-01-05] MEDS: VANCOMYCIN HCL 2,000 MG in SODIUM CHLORIDE 0.9% 500 ML IV SCH (09:57)
--- NOTE | 2024-01-05 10:40 | History & Physical Bridge Note ---
Date of Service January 05, 2024 History & Physical Bridge Note I have examined the patient, reviewed the History & Physical and in the interval since the performance of the History & Physical I have noted the following changes of clinical significance: no changes noted
[2024-01-05] MEDS ORDERED: NALOXONE HCL 0.4 MG/1 ML VIAL/CARP IV PRN ×2 (11:35→19:32)
[2024-01-05] MEDS ORDERED: ONDANSETRON INJ 2 MG/ML 2 ML VIAL IV PRN ×2 (11:35→19:32)
[2024-01-05] MEDS ORDERED: FLUMAZENIL 0.1 MG/1 ML 10 ML VIAL IV PRN (11:35)
[2024-01-05] MEDS ORDERED: ePHEDrine sulfate 50 MG/ML AMP IV PRN (11:35)
[2024-01-05] MEDS ORDERED: fentaNYL citrate PF 100 MCG/2 ML VIAL IV PRN (11:35)
[2024-01-05] MEDS ORDERED: HYDROmorphone INJ 1 MG/ML SYRINGE IV PRN (11:35)
[2024-01-05] MEDS ORDERED: PROMETHAZINE HCL 6.25 MG in SODIUM CHLORIDE 0.9% 50 ML IV PRN (11:35)
[2024-01-05] MEDS ORDERED: LABETALOL HCL IV 5 MG/ML 20ML IV PRN (11:35)
[2024-01-05] MEDS ORDERED: ATROPINE SULFATE 0.1 MG/ML 10ML SYR IV PRN (11:35)
[2024-01-05] MEDS ORDERED: fentaNYL citrate PF 100 MCG/2 ML VIAL ONE (11:38)
[2024-01-05] MEDS ORDERED: MIDAZOLAM HCL 1 MG/ML 2ML VIAL ONE (11:38)
[2024-01-05] MEDS: TRANEXAMIC ACID 1,000 MG **IV Pre-op IV SCH (13:40)
[2024-01-05] MEDS: ceFAZolin 3000MG 3,000 MG/72.5 ML BAG IV SCH (13:50)
[2024-01-05] MEDS ORDERED: ROCURONIUM BROMIDE 10 MG/ML 5 ML VIAL IV ONE ×2 (14:41→17:12)
[2024-01-05] MEDS ORDERED: LIDOCAINE 2% 2 ML VIAL/AMP(20MG/ML) INFIL ONE (14:41)
[2024-01-05] MEDS ORDERED: ONDANSETRON INJ 2 MG/ML 2 ML VIAL ONE (14:41)
[2024-01-05] MEDS ORDERED: PROPOFOL IV EMULSION 10 MG/ML 20 ML VIAL IV ONE ×2 (14:41→14:46)
[2024-01-05] MEDS ORDERED: PHENYLEPHRINE HCL 10 MG/ML VIAL ONE (14:48)
--- OUTSIDE RECORDS SUMMARY | 2024-01-05 15:13 | External Medical Summary | Summary of Care ---
Author Name Unknown Organization [facility] Address [address] [place] [address] Phone [phone] Care Team Providers Care Fur Tinter Name Role Phone Marya Faye DO Primary Care Provider Encounter Details Date Type Department Care Team (Late st Contact Info) Description 01/03/2024 Orders Only Family Practice [facility] [address] [place] [address] Marya Faye DO [address] [facility] [place] [address] Allergies Active Allergy Reactions Criticality Noted Date Comments Lisinopril 06/11/2017 Dizzy, lightheaded. documented as of this encounter (statuses as of 01/03/2024) Medications Medication Sig Dispensed Refills Start Date End Date Status Fluticasone Propionate 50 MCG/ACT Nasal Suspension (Flonase)Indication s:Acute maxillary sinusitis, recurrence not specified Administer 2 Sprays into each nostril daily. 16 g 11 11/04/2020 Active Additional Information Patient not taking.Reported on 12/31/2023 Benzonatate 100 MG Oral Capsule (Tessalon Perlcrystal)Indications: Upper respiratory tract infection, unspecified type Take 1 Capsule by mouth 3 times a day as needed for Cough. Do not cut, crush, or chew. 50 Capsule 1 02/15/2023 Active Additional Information Patient not taking.Reported on 12/31/2023 Losartan Potassium 50 MG Oral Tablet (Cozaar)Indications :Essential hypertension with goal blood pressure less than 140/90 Take 1 Tablet by mouth in the morning. 90 Tablet 3 07/02/2023 Active Atorvastatin Calcium 10 MG Oral Tablet (Lipitor)Indication s:Mixed dyslipidemia TAKE 1 TABLET BY MOUTH EVERY DAY IN THE MORNING 90 Tablet 2 11/19/2023 Active documented as of this encounter (statuses as of 01/03/2024) Active Problems Problem Noted Date Diagnosed Date Class 2 severe obesity due t o excess calories with serious comorbidity and body mass index (BMI) of 39.0 to 39.9 in adult 07/02/2023 History of colon polyps 01/01/2023 Seborrheic keratosis 06/26/2022 Mixed dyslipidemia 05/01/2016 IFG (impaired fasting glucose) 05/01/2016 Metabolic syndrome 05/01/2016 Difficult intubation 11/29/2015 Overview: 29 Nov 2015: MAC 4: no structures seen. [facility] D: Cormack grade one view; still difficult because stylet needed a short, tight curve to reach the glottis. A longer initial stylet curve could not be centered on the glottis due to glancing off the laryngeal supraglottic structures. 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 Other allergic rhinitis Overview: ICD-10 update of inactive term documented as of this encounter (statuses as of 01/03/2024) Resolved Problems Problem Noted Date Diagnosed Date Resolved Date Panic disorder 06/02/2005 12/23/2012 Esophageal reflux 02/20/2000 12/23/2012 documented as of this encounter (statuses as of 01/03/2024) Immunizations Name Administration Dates Next Due COVID-19 mRNA, LNP-s, No Pre serve, 2-Dose Series (Moderna) 06/20/2020,05/23/2020 PPD 03/10/2011 Seasonal Influenza Vac., MDV, IM, 0.5 mL (Fluzon e) 12/23/2012 Seasonal Influenza, PF, 6 M & above, IM , (FluLaval or Fluzone) 01/01/2023,01/12/2020 TD - Tetanus/Diptheria (ADULT) 09/22/2005 TDAP (age 10 and older)(Boostrix) 01/01/2023, documented as of this encounter Social History Tobacco Use Types Packs/Day Years Used Date Smoking Tobacco: Never Smokeless Tobacco: Current Chew Alcohol Use Standard Drinks/Week Comments Yes 0 (1 standard drink = 0.6 oz pur e alcohol) 2-3/week PHQ-2 Answer Date Recorded PHQ-2 Score 0 11/23/2019 Hunger Vital Sign Answer Date Recorded Worried About Running Out of Food in the Last Ye ar Never true 11/23/2019 Ran Out of Food in the Last Year Never true 11/23/2019 Utilities Answer Date Recorded Do you have trouble paying y our heating, water, or electric bill? (Adult - for ages 18 years and over) Not on file 09/14/2023 Is your family able to pay t he heat, water, or electric bill? (Household - for ages 0-17 years) Not on file 09/14/2023 Does your family have access to good internet? (Household - for ages 0-17 years) Not on file 09/14/2023 Social Connections Answer Date Recorded How often do you feel lonely or isolated from those around you? (Adult - for ages 18 years and over) Not on file 09/14/2023 Sex and Gender Information Value Date Recorded Sex Assigned at Not on file Gender Identity Not on file Sexual Orientation Not on file Job Start Date Occupation Industry Not on file Not on file Not on file documented as of this encounter Plan of Treatment Scheduled Procedures Name Priority Associated Diagnoses Date/Ti me COLONOSCOPY FLEXIBLE PROXIMA L DIAGNOSTIC Recall History of colonic polyps Health Maintenance Due Date Last Done Comments Hepatitis B Vaccine (1 of 3 - 19+ 3-dose series) 01/12/1984 Cologuard 2010 Fecal Occult Blood Test 2010 Sigmoidoscopy 2010 Zoster Vaccines (1 of 2) 2015 Depression Screening 11/22/2020 11/23/2019 COVID-19 Vaccine ( - season) 2023 06/20/2020, 05/23/2020 Influenza Vaccine (FLU shot) (#1) 2023 01/01/2023, 01/12/2020, 06/11/2017 (Refused), Additional history exists GFR 06/17/2024 12/31/2023, 05/28, 06/26/2022, Additional history exists Albumin/Creatinine Ratio 06/26/2025 06/26/2022 Diabetes Screening 06/17/2026 12/31/2023, 0 06/18/2023, 06/26/2022, Additional history exists Colonoscopy 11/21/2027 11/20/2022, 10/28, 08/02/2015, Additional history exists Colorectal Cancer Screening 11/21/2027 Lipid Panel 06/17/2028 06/18/2023, 05/29, 11/07/2020, Additional history exists DTap/Tdap Vaccines (3 - Td or Tdap) 01/01/2033 01/01/2023, 12/23/2012, 09/22/2005, Additional history exists RETIRED - COLONOSCOPY-EVERY 5 YRS AGES 18-100 Discontinued 11/20/2022, 11/20/2022, 08/02/2015, Additional history exists HPV (Gardasil) Vaccine Aged Out No lo nger eligible based on patient's age to complete this topic MENINGOCOCCAL (MENACTRA/MENVEO) Aged Out No longer eligible based on patient's age to complete this topic Pneumococcal Vaccine: Pediatrics (0 to 5 Years) and At-Risk Patients (6 to 64 Years) Aged Out No longer eligible based on patient's age to complete this topic documented as of this encounter Medical Devices Not on filedocumented as of this encounter Procedures Procedure Name Priority Date/Time Associated Diagnosis Comments CHEMISTRY-OUTSIDE Routine 12/31/2023 documented in this encounter Results * (ABNORMAL) CHEMISTRY-OUTSIDE (12/31/2023) Not all results display below - see scan for full detail OUTSIDE LAB (SEE SCANNED REPORT) Comment:SEE SCAN - BMP, PTIN R, CBCD, BLOOD TYPE CREATININE 0.94 0.6 - 1.4 MG/DL OUTSIDE LAB (SEE SCANNED REPORT) EGFR 93.97 ML/MIN OUTSIDE LA B (SEE SCANNED REPORT) POTASSIUM 3.7 3.5 - 5.1 MMOL/L OUTSIDE LAB (SEE SCANNED REPORT) GLUCOSE 111(A) 70 - 99 MG/DL OUTSIDE LAB (SEE SCANNED REPORT) HOURS FASTING OUTSID E LAB (SEE SCANNED REPORT) TRIGLYCERIDES-OUT SIDE LAB OUTSIDE LAB (SEE SCANNED REPORT) CHOLESTEROL-OUTSI DE LAB OUTSIDE LAB (SEE SCANNED REPORT) HDL-OUTSIDE LAB OUTS MARK LAB (SEE SCANNED REPORT) CHOL/HDL RATIO-OUTSIDE LAB OUTSIDE LA B (SEE SCANNED REPORT) LDL (CALCULATED)-OUTS MARK LAB OUTSIDE LAB (SEE SCANNED REPORT) LDL (DIRECT MEASURE)-OUTSIDE LAB OUTSIDE LAB (SEE SCANNED REPORT) HEMOGLOBIN, J8A-SPVIUNF LAB OUTSIDE LAB (SEE SCANNED REPORT) PHOSPHORUS-OUTSID E LAB OUTSIDE LAB (SEE SCANNED REPORT) PTH-OUTSIDE LAB OUTS MARK LAB (SEE SCANNED REPORT) MICROALBUMIN RATIO-OUTSIDE LAB OUTSIDE LA B (SEE SCANNED REPORT) PROTEIN, UA-OUTSIDE LAB OUTSIDE LAB (SEE SCANNED REPORT) HGB 14.9 14.0 - 18.0 G/DL OUTSIDE LAB (SEE SCANNED REPORT) 12/31/2023 Xu Arambula MD LABORATORY OUTSIDE LAB (SEE SCANNED REPORT) documented in this encounter Advance Directives * Full Code (Latest Code Status on File) Date Activated Date Inactivated Comments 11/29/2015 7:26 AM 11/30/2015 2:37 AM This order ref lects the patients wishes and were consensually agreed upon. Question Answer Comments Discussion of Advance Directives occurred with: Not Discussed Does the patient have a Living Will? No Does the patient have Health Care Power of Attor magy? No Care Teams Fur Tinter Relationship Specialty Start Date End Date Marya Faye DO [address] [place] [address] PCP - General Family Medicine 11/17/16 documented as of this encounter
--- OUTSIDE RECORDS SUMMARY | 2024-01-05 15:13 | External Medical Summary | Summary of Care ---
Author Name Unknown Organization [facility] Address [address] [facility] [place] [address] Phone [phone] Care Team Providers Care Gastrointestinal Technician Name Role Phone Marya Faye DO Primary Care Provider Reason for Visit * Reason Comments Follow Up Following with ortho for left shoulder, surgery next week Encounter Details Date Type Department Care Team (Late st Contact Info) Description 12/31/2023 3:00 PM EDT Office Visit [facility] [address] [facility] [place] [address] Marya Faye DO [address] [place] [address] Preoperative general physical examination* Allergies Active Allergy Reactions Criticality Noted Date [...] 12/31/2023 Benzonatate 100 MG Oral Capsule (Tessalon Perles)Indications: Upper respiratory tract infection, unspecified type Take [...] Nov 2015: MAC 4: no structures seen. [facility]: Cormack grade one view; still [...] on file documented as of this encounter Last Filed Vital Signs Vital Sign Reading Time Taken Comments Blood Pressure 130/84 12/31/2023 3:11 PM EDT Pulse 88 12/31/2023 3:11 PM EDT Temperature 36.9 C (98.5 F) 12/31/2023 3:11 PM ED T Respiratory Rate 16 12/31/2023 3:11 PM EDT Oxygen Saturation - - Inhaled Oxygen Concentration - - Weight 131.5 kg (290 lb) 12/31/2023 3:11 PM EDT Height 177.8 cm (5' 10") 12/31/2023 3:11 PM EDT Body Mass Index 41.61 12/31/2023 3:11 PM EDT documented in this encounter Progress Notes * Marya Faye, DO - 12/31/2023 3:22 PM EDT Subjective: Benedicto Rubin is a 58 year old male. Chief Complaint Patient presents with Follow Up Following with ortho for left shoulder, surgery next week HPI: Patient's past medical, surgical, family, and social history were reviewed. Medications, allergies, immunizations, and health care maintenance screenings were also reviewed. Preop clearance requested by Dr. Arambula, [facility] [place], for L reverse total shoulder arthroplasty for L rotator cuff injury of subscapularis, supraspinatus, and infraspinatus tendons, at [facility], planned for 01/05/2024 Hypertension Follow Up The patient is taking medications as instructed. No medication side effects are described. The patient is not monitoring home blood pressures. The patient denies any acute focal neurologic symptoms. The patient reports no chest pain, no orthopnea, and no dyspnea on exertion. The patient denies intermittent claudication symptoms. PHM: Patient Active Problem List Diagnosis Other allergic rhinitis ADVANCE DIRECTIVE INFORMATION Tobacco abuse disorder Sinusitis, chronic Snoring Tympanosclerosis Dysfunction of eustachian tube Umbilical hernia Essential hypertension with goal blood pressure less than 140/90 Difficult intubation Mixed dyslipidemia IFG (impaired fasting glucose) Metabolic syndrome Seborrheic keratosis History of colon polyps Class 2 severe obesity due to excess calories with serious comorbidity and body mass index (BMI) of39.0 to 39.9 in adult (HCC) Current Outpatient Medications Medication Sig Dispense Refill Atorvastatin Calcium 10 MG Oral Tablet (Lipitor) TAKE 1 TABLET BY MOUTH EVERY DAY IN THE MORNING 90Tablet 2 Losartan Potassium 50 MG Oral Tablet (Cozaar) Take 1 Tablet by mouth in the morning. 90 Tablet 3 Benzonatate 100 MG Oral Capsule (Tessalon Perles) Take 1 Capsule by mouth 3 times a day as needed for Cough. Do not cut, crush, or chew. (Patient not taking: Reported on 12/31/2023) 50 Capsule 1 Fluticasone Propionate 50 MCG/ACT Nasal Suspension (Flonase) Administer 2 Sprays into each nostril daily. (Patient not taking: Reported on 12/31/2023) 16 g 11 No current facility-administered medications for this visit. Review of patient's allergies indicates: Allergen Reactions Lisinopril Dizzy, lightheaded. Objective: BP 130/84 | Pulse 88 | Temp 36.9 C (98.5 F) | Resp 16 | Ht 1.778 m (5' 10") | Wt 131.5 kg (290 lb) | BMI 41.61 kg/m | BSA 2.55 m Physical Exam: General: alert, healthy, and no distress Head: Normocephalic, No masses, lesions, tenderness or abnormalities Neck: supple, no adenopathy, no bruits, thyroid normal size, non-tender, without nodularity Heart: regular rate & rhythm, no murmur, and no gallops Lungs: chest symmetric with normal AP diameter, no chest deformities noted, no chest wall tenderness, lungs clear to auscultation Pulses: carotid=2/4 w/o bruits Extremities: less than 2 second capillary refill, no joint deformities, effusion, or inflammation Latest Reference Range & Units 04/23/20 10:40 11/07/20 08:17 11/07/20 08:21 12/27/20 00:00 01/20/21 00:00 01/23/21 00:00 06/26/22 15:31 06/26/22 15:36 11/20/22 10:07 06/18/23 09:55 Triglycerides <=174 mg/dL 291 (H) 125 174 146 Cholesterol <200 mg/dL 219 (H) 154 170 165 NON-HDL CHOLESTEROL 0 - 159 mg/dL 192 (H) Non-HDL Cholesterol <=159 mg/dL 120 137 128 HDL Cholesterol >39 mg/dL 27 (L) 34 (L) 33 (L) 37 (L) LDL Cholesterol <=129 mg/dL 134 (H) 95 102 99 LDL Cholesterol (Direct Measure) 0 - 129 mg/dL NOT APPLICABLE SODIUM 135 - 146 mmol/L 140 140 139 140 POTASSIUM 3.5 - 5.1 mmol/L 4.4 4.2 3.7 (E) 4.2 (E) 4.2 4.4 CHLORIDE 98 - 107 mmol/L 102 104 102 103 CO2 22 - 32 mmol/L 24 23 25 27 BUN 6 - 20 mg/dL 17 18 18 17 CREATININE 0.6 - 1.2 mg/dL 1.1 1.1 0.99 (E) 0.99 (E) 1.0 1.0 EGFR >=60 mL/min >60.0 78.6 85.4 (E) 84.8 (E) >90 85 ANION GAP 7 - 15 mmol/L 13 12 10 GLUCOSE 70 - 120 mg/dL 116 91 (E) 128 ! (E) 97 99 CALCIUM 8.4 - 10.2 mg/dL 9.3 9.2 9.6 9.1 Protein 6.0 - 8.3 g/dL 7.4 7.2 Estimated Average Glucose <126 mg/dL 105 Hemoglobin A1C 4.0 - 5.6 % 5.3 5.3 HGB 14.0 - 18.0 G/DL 14.4 (E) 13.6 ! (E) [id number] LAB NEGATIVE NEGATIVE (E) Albumin 3.8 - 5.0 g/dL 4.7 4.5 AST 10 - 50 U/L 21 20 ALT 10 - 50 U/L 38 32 Alkaline Phosphatase 35 - 130 U/L 78 73 Bilirubin, Total <=1.2 mg/dL 0.3 0.7 SURGICAL PATHOLOGY Rpt PROTEIN, UA-OUTSIDE LAB NEGATIVE NEGATIVE (E) Albumin / Creatinine Ratio, Urine <30 mg/g Creat <9 Protein/ Creatinine Ratio, Urine <150 mg/g 61 72 PROTEIN/CREAT RATIO <150 mg/g 56 Albumin, Random Urine mg/dL <1.20 Protein, Random Urine mg/dL 15 10 6 Creatinine, Random Urine mg/dL 268 165 133 83 ASSESSMENT/PLAN: Preoperative general physical examination (Primary) Pt has acceptable risk for this low risk surgery Hold ASA and any other OTC nsaid, MVI for 10 days Pt to continue all current meds Early OOB, PT and OT Defer anti coagulation to orthopedic PAT labs reviewed 30 min spent with patient, reviewing history, performing physical exam, reviewing labs, studies, specialist OVNs, and reports, educating and coordinating care, discussing treatment, and completing this note Marya Faye DO documented in this encounter Nursing Notes * Monae Maguire LPN - 12/31/2023 3:10 PM EDT The patient has been properly identified by confirmation of name and date of . Chief Complaint Patient presents with Follow Up Following with ortho for left shoulder, surgery next week documented in this encounter Plan of Treatment Scheduled Procedures [...] 01/12/2020, 06/11/2017 (Refused), Additional history exists GFR 12/30/2024 12/31/2023, 05/28, 06/26/2022, Additional history exists Albumin/Creatinine Ratio 06/26/2025 06/26/2022 Diabetes Screening 12/30/2026 12/31/2023, 0 06/18/2023, 06/26/2022, Additional history exists [...] Not on filedocumented as of this encounter Visit Diagnoses Diagnosis Preoperative general physical examination- Primary Other specified pre-operative examination documented in this encounter Advance Directives * [...] Power of Attor magy? No Care Teams Gastrointestinal Technician Relationship Specialty Start Date End Date Marya Faye DO [address] [place] [address] PCP - General Family Medicine 11/17/16 documented as of this encounter
--- OUTSIDE RECORDS SUMMARY | 2024-01-05 15:13 | External Medical Summary | Summary of Care ---
Author Name Unknown Organization [facility] Address [address] [facility] [place] [address] Phone [phone] Care Team Providers Care Advisory Application Developer Name Role Phone Marya Faye DO Primary Care Provider Reason for Visit * Reason Comments Follow Up Following with ortho for left shoulder, surgery next week Encounter Details Date Type Department Care Team (Late st Contact Info) Description 12/31/2023 3:00 PM EDT Office Visit [facility] [address] [facility] [place] [address] Marya Faye DO [address] [place] [place] [address] Preoperative general physical examination* Allergies Active Allergy [...] Nov 2015: MAC 4: no structures seen. [facility] Cormack grade one view; still [...] reviewed. Preop clearance requested by Dr. Arambula, [facility], for L reverse total shoulder arthroplasty for L rotator cuff injury of subscapularis, supraspinatus, and infraspinatus tendons, at [facility], planned for 01/05/2024 Hypertension Follow Up The [...] 18.0 G/DL 14.4 (E) 13.6 ! (E) [id number] LAB NEGATIVE NEGATIVE (E) Albumin 3.8 - [...] Power of Attor magy? No Care Teams Advisory Application Developer Relationship Specialty Start Date End Date Marya Faye DO [address] [place] [address] PCP - General Family Medicine 11/17/16 documented as of this encounter
[2024-01-05] MEDS ORDERED: GLYCOPYRROLATE 0.2 MG/ML VIAL ONE (15:14)
[2024-01-05] MEDS ORDERED: diphenhydrAMINE 50 MG/ML VIAL ONE (15:14)
[2024-01-05] MEDS ORDERED: SUGAMMADEX SODIUM 200 MG/2 ML VIAL IV ONE (16:02)
[2024-01-05] MEDS ORDERED: ceFAZolin 330 MG/ML 1 GM VIAL ONE (17:04)
[2024-01-05] MEDS: ceFAZolin 3,000 MG in DEXTROSE 5% 50 ML IV ONE (17:50)
[2024-01-05] MEDS: TRANEXAMIC ACID 1,000 MG **IV Intra-op IV SCH (17:54)
--- NOTE | 2024-01-05 18:45 | XRay Report ---
XR shoulder LT min 2V routine CLINICAL HISTORY: Post shoulder surgery TECHNIQUE: 3 views of the left shoulder were obtained. Comparison: Comparison is made to left shoulder radiographs 11/27/2022 FINDINGS: Patient is status post shoulder arthroplasty with expected postsurgical changes including soft tissue swelling and subcutaneous emphysema. No periarticular lucency or hardware fracture is seen. IMPRESSION: Expected postoperative appearance status post placement of shoulder arthroplasty. ACT 112: Negative or not required by law. Electronically signed by: Hiro Palma M.D. 01/05/2024 6:44 PM
--- NOTE | 2024-01-05 18:54 | Operative Report ---
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 I identified the patient and participated in the time-out.: Yes Procedure Operation Date: 01/05/24 11:55 Actual Procedures Left Shoulder revision of an anatomic total shoulder replacement to a reversed total shoulder replacement with revision of both glenoid and humeral components. Debridement of synovium and inflammatory tissue response with explantation humeral and glenoid components.- Xu Arambula MD Surgeon Xu Arambula MD Biological Engineer León MOORE Estimated Blood Loss 200 Findings Consistent with Post-Op Diagnosis Specimens Frozen section soft tissue implant bone interface inflammatory tissue. Drains 2 Hemovac Anesthesia Type General Regional Complications none Disposition Disposition: Recovery Room Indications 58-year-old male who injured his shoulder in a fall and had marked pain and inability to raise his arm. He felt as though he dislocated his shoulder. Ultrasound suggested partial tearing of the rotator cuff supraspinatus infraspinatus and tearing of the subscapularis. Radiographs demonstrate normally located shoulder with extensive osteolysis around the glenoid component with a bone scan showing increased signal there not consistent with infection but consistent with loosening. Humeral component has no loosening. There is osteolysis around the proximal humeral component. Description of Procedure The patient was taken to the operating room and anesthetized under regional block and general anesthetic. The patient was positioned on the operating table in a 30 beachchair position with a towel roll under the medial border of the left scapula. The arm was draped free to be able to manipulate the shoulder as needed. The left upper extremity was prepped and draped in usual sterile fashion. Exam demonstrated moderate obesity around the left upper arm and shoul sharon. Benign scar no signs of infection or drainage. Range of motion 70 degrees external rotation 90 degrees abduction and 150 degrees forward flexion. An anterior deltopectoral approach was performed. A longitudinal incision was made in the deltopectoral interval through his prior scar utilizing 80% of this scar. The skin was incised sharply. Subcutaneous flaps were elevated off the fascia. The cephalic vein was not present. The patient had a previous biceps tenodesis with transfer the biceps tendon long head to the short head of the biceps conjoined tendon. This biceps tenodesis was intact and well-healed. The scarred clavipectoral fascia was divided at the lateral margin of the conjoined tendon and extended up to the CA ligament. Thickened bursal scar tissue was dissected off of the subscapularis repair which was noted to be intact with tendinopathy but there were multiple areas of foreign body reaction with yellow scarred inflammatory tissue around the ends of the sutures. The suture material and this inflammatory material was excised with a rongeur and scalpel. The supraspinatus and infraspinatus had some tendinopathy but were intact. There was scar tissue between the rotator cuff and subdeltoid region and this was all released to mobilize the shoulder.The upper centimeter of the pectoralis was released for inferior exposure. The rotator interval was opened up down to the glenoid and to the bicipital groove area. Incision was carried down through the bicipital groove down to the pectoralis tendon on the bone. The subscapularis tendon was taken down off the lesser tuberosity using a subperiosteal peel type dissection. the arm was gradually externally rotated exposing the humeral head of the prosthesis. There was marked inflammatory response around the calcar region medially to the neck of the prosthetic and extended posterior and anterior with similar yellow scar tissue with inflammatory type synovitis. This tissue was sent for frozen section and there was no active inflammation with white cells per high-power field. All of this synovitic type scar tissue was removed demonstrating cavities into the proximal metaphyseal bone but the implant itself was solidly fixed on the humeral side. When humeral head was better exposed a tuning fork was used to separate the head from the stem. Flexible osteotomes were then used around the stem and then a slaphammer device used to disimpact the humerus from the shaft. Reamers from the Biomet kit were used to open up the canal and then further reamers from the Tornier revive revision stem were used up to a size 11 which had the appropriate fit and fill. Proximal 11 body was utilized and also fit well on broaching. A cut protector was placed over the implant. A Fukuda retractor was placed into the joint retracting the humerus was retracted posterior. Glenoid findings demonstrated the glenoid component was broken there was significant wear on the glenoid component more superiorly and it was 1 large polyethylene fragment that broken off and the central bone ingrowth peg was also broken leading fragments still within the bone of the glenoid. There was marked inflammatory response c onsistent with osteolysis related to polyethylene wear. All of this tissue was typical yellow scar tissue similar to the response over the suture material. Retractors were placed to expose the glenoid and I dissected around the edge of the glenoid with electrocautery and a Herr elevator staying on bone and exposing the glenoid completely. There was a large contained defect with multiple cavities and the bone. Extensive debridement was performed using pituitary rongeur several other rongeur's curettes to remove all of this inflammatory tissue. The bone was irrigated. Based on preoperative CT scanning we chose the site for the pin placement chosen by the plan. I chose to use a baseplate with a standard back. I placed the trial over the area of intension look like we will get bone contact so this was held in position and the guidewire was placed. We had good solid bone contact with the guidewire. The baseplate reamer for a 25 mm baseplate was utilized. After reaming I was able to get 3 areas of good bone contact that would stabilize the implant. The reamer for the boss was utilized. At this point after copious irrigation mixed Genex calcium sulfate/calcium phosphate material and what it was in the working phase we used 5 cc to fill the voids holding the screw insertion device that filled the area for the boss of the implant and filled the other cavities around this and allowed this to harden for 15 minutes. This time the central area was irrigated and the reamer was used on reverse and light irrigation performed. I chose to use a +3 offset 25 mm baseplate. The guide for the central drill hole was utilized and this was measured at 35 mm. The 35 x 6.5 mm center screw was placed into the 25+3 mm baseplate and this was screwed in position with good fixation. We used superior and inferior and anterior posterior screws all with good fixation. The large spicules of bone around the periphery of the glenoid were removed with rongeur's so that we could place a [address]. After further irrigation the 42 mm standard glenoid sphere was impacted onto the baseplate and the security screw tightened and we went on to trial reduction. +0 high offset tray was placed and we tried the poly trial inserts however there is still some minor shuck with longitudinal traction so we had to increase the baseplate to a +6 mm high offset tray and then with a +6 mm trial reversed poly implant there was stable range of motion no shuck. The final component was assembled. The final component was was the 11 mm fully coated revive stem 90 mm assembled to the 40 mm proximal 11 mm body using the 13 mm screw and cap. This was then impacted into the humerus and 20 degrees of retroversion with a tight press-fit. It was reduced to the glenoid sphere. After the stem was implanted the +6 mm high offset tray placed with a high offset superior in position. This was impacted onto the stem and we did another trial reduction which verified the +6 insert was appropriate so then the +6 reversed polyethylene insert for 42 mm diameter head was impacted into the tray and then this was reduced to the glenoid sphere and stability was verified. There was 150 degrees of forward elevation 80 degrees abduction and 70 degrees of external rotation with stable range of motion. I was unable to repair the subscapularis due to the offset and inferior center of rotation. Wound was irrigated with saline and Xperience solution. We did irrigate the baseplate prior to placing the polyethylene into the baseplate prior to the reduction. Xperience was used for that as well. The pectoralis was repaired with #2 FiberWire [id number] sutures. The wound was copiously irrigated with Xperience. 2 Hemovac drains were placed. The deltopectoral interval was closed with [id number] #1 Vicryl sutures. The subcutaneous tissues were closed with 2-0 Vicryl sutures. The skin was closed with surgical jay. Sterile dressings were applied and a shoulder immobilizer. León MOORE my physician fundraising assistant assisted in the procedure to the entire procedure including patient positioning arm positioning prepping and draping soft tissue retraction instrument management suture management and performed the subcutaneous and skin closure and will participate in the postoperative care of the patient. I attest to the content of the Intraoperative Record and any orders documented therein. Any exceptions are noted below.
--- NOTE | 2024-01-05 19:10 | Anesthesiology Progress Note ---
Date of Service January 05, 2024 Anesthesia Post Procedure Vital Signs Vital Signs: Temp Pulse Resp BP Pulse Ox O2 Del Method O2 Flow Rate 01/05/24 19:00 90 19 151/96 H 98 Nasal Cannula 3 01/05/24 18:50 98 H 18 165/97 H 96 Nasal Cannula 3 01/05/24 18:40 103 H 19 176/100 H 96 Oxymask 5 01/05/24 18:34 36 C L 94 H 18 179/107 H 95 Oxymask 5 01/05/24 09:35 36.9 C 75 20 145/98 H 95 Room Air Pain Intensity Left Shoulder: Pain Intensity: 1 Transfer of Care Handoff Completed per policy Notes Mental Status: alert / awake / arousable Patient Amnestic to Procedure: Yes Nausea / Vomiting: adequately controlled Pain: adequately controlled Airway Patency, RR, SpO2: stable & adequate BP & HR: stable & adequate Hydration State: stable & adequate Anesthetic Complications: no major complications apparent
[2024-01-05] MEDS ORDERED: KETOROLAC TROMETHAMINE 15 MG/ML VIAL IV PRN (19:32)
[2024-01-05] MEDS ORDERED: diphenhydrAMINE Capsule 25 MG CAP PO PRN (19:32)
[2024-01-05] MEDS ORDERED: METOCLOPRAMIDE HCL INJ 5 MG/ML 2 ML VIAL IV PRN (19:32)
[2024-01-05] MEDS ORDERED: bisacodyL 10 MG SUPP PR PRN (19:32)
[2024-01-05] MEDS ORDERED: HYDROmorphone INJ 0.5 MG/0.5 ML SYR IV PRN (19:32)
[2024-01-05] MEDS ORDERED: ALUMINUM/MAGNESIUM SUSP 30 ML UDC PO PRN (19:32)
[2024-01-05] MEDS ORDERED: TAMSULOSIN HCL 0.4 MG CAP PO PRN (19:32)
[2024-01-05] MEDS ORDERED: MAGNESIUM HYDROXIDE SUSP 30 ML UDC PO PRN (19:32)
[2024-01-05 20:02] VITALS: RESP 18
[2024-01-05] MEDS: DOCUSATE SODIUM 100 MG CAP PO SCH (22:12)
[2024-01-05] MEDS: ASPIRIN 325 MG ECTAB PO SCH (22:12)
[2024-01-05] MEDS: SODIUM CHLORIDE 0.9% 1,000 ML IV SCH (22:12)
[2024-01-05] MEDS: SENNA 8.6 MG TAB PO SCH (22:12)
[2024-01-05] MEDS: ceFAZolin 2000MG 2,000 MG/15 ML SYR IV SCH (22:13)
[2024-01-06] MEDS: TRANEXAMIC ACID / 0.7% NACL 1,000 MG/100 ML BAG IV SCH (00:07)
[2024-01-06 03:17] VITALS: PULSE 84
[2024-01-06 06:22] LABS: Basophils # (auto) 0.03 K/uL (0.00-0.20); Basophils % (auto) 0.2 %; Eosinophils # (auto) 0.01 K/uL (0.00-0.50); Eosinophils % (auto) 0.1 %; Hematocrit (blood only) 41.7 % (42.0-52.0); Hemoglobin 14.2 g/dl (14.0-18.0); Immature Granulocytes # (auto) 0.07 K/uL (0.01-0.20); Immature Granulocytes % (auto) 0.4 %; Lymphocytes # (auto) 2.33 K/uL (1.20-3.40); Lymphocytes % (auto) 12.9 %; Mean Corpuscular Hemoglobin 29.2 pg (25.0-34.0); Mean Corpuscular Hgb Conc 34.1 g/dL (32.0-36.0); Mean Corpuscular Volume 85.8 fL (80.0-100.0); Mean Platelet Volume 9.8 fL (9.4-12.4); Monocytes # (auto) 1.09 K/uL (0.11-0.59); Neutrophils # (auto) 14.57 K/uL (1.40-6.50); Neutrophils % (auto) 80.4 %; Platelet Count 323 K/uL (130-400); RDW Standard Deviation 40.2 fL (36.4-46.3); Red Blood Count 4.86 M/uL (4.70-6.10)
[2024-01-06 06:41] LABS: BUN Creatinine Ratio 15.4 (10-20); Calcium 8.5 mg/dl (8.6-10.3); Creatinine Clr Calc Pharmacy 104.4 ml/min; Potassium 4.2 mmol/L (3.5-5.1)
[2024-01-06 07:31] VITALS: BP 127/79; TEMP 98.4; O2SAT 94
[2024-01-06] MEDS: dexAMETHasone 10 MG in SYRINGE 0 ML IV SCH (07:34)
--- NOTE | 2024-01-06 07:48 | Consultation ---
Date of Consultation January 06, 2024 Assessment & Plan (1) Loosening of total shoulder replacement: 58-year-old male with past medical significant for dyslipidemia, impaired fasting glucose, chronic sinusitis, difficult intubation, hypertension, obesity, tobacco use disorder, status post left shoulder surgery. Patient seems to had fell at work on his outstretched left arm. And had significant pain and weakness and inability to raise his arm. Patient had history of total shoulder replacement on that shoulder in January 2011. Also found to have acute traumatic rotator cuff tear. Status postsurgery and tolerated the procedure okay. Resting comfortably. Denies any pain. No blurred vision. No nausea. Has some sore throat from the procedure. Denies any chest pain. No shortness of breath, no nausea, no abdominal pain. Micturating okay. Ambulating in the room okay. Loosening of left total shoulder replacement Rotator cuff tear S/p surgery Management as per orthopedics Hypertension On losartan Hyperlipidemia On statin Morbid obesity Needs counseling DVT prophylaxis and disposition Per orthopedics History of Present Illness Reason for Consultation: Status post left shoulder surgery Attending Physician: Xu Arambula MD History of Present Illness 58-year-old male with past medical significant for dyslipidemia, impaired fasting glucose, chronic sinusitis, difficult intubation, hypertension, obesity, tobacco use disorder, status post left shoulder surgery. Patient seems to had fell at work on his outstretched left arm. And had significant pain and weakness and inability to raise his arm. Patient had history of total shoulder replacement on that shoulder in January 2011. Also found to have acute traumatic rotator cuff tear. Status postsurgery and tolerated the procedure okay. Resting comfortably. Denies any pain. No blurred vision. No nausea. Has some sore throat from the procedure. Denies any chest pain. No shortness of breath, no nausea, no abdominal pain. Micturating okay. Ambulating in the room okay. Past med history. As mentioned above Past surgical history. Colonoscopy. Flexible sigmoidoscopy. Left knee arthroscopy. Left shoulder arthroplasty. Excision of rectal tumor. Umbilical hernia repair. Social history. . No smoking. Alcohol 2-3 times a week. No drug use. Family history. Father had heart disorder. Hyperlipidemia. Mother had heart disorder. Maternal grandmother had stroke. Paternal grandmother had heart disorder. Paternal grandfather had stomach cancer. Allergies Allergy/AdvReac Type Severity Reaction Status Date / Time No Known Allergies Allergy Verified 01/05/24 09:32 Home Medications Medication Instructions Recorded Confirmed Type losartan 50 mg tablet 50 mg PO QAM 12/21/19 01/05/24 History atorvastatin 10 mg tablet 10 mg PO QAM 12/19/20 01/05/24 History Allergy Tab 1 tab PO DAILY 09/14/22 01/05/24 History acetaminophen 500 mg tablet 1,000 mg PO Q8H PRN Pain 09/14/22 01/05/24 History Patient History Medical History Obesity (BMI 30-39.9) Mixed hyperlipidemia Per records Hypertension Per records Osteoarthritis Colon cancer Anxiety "Well controlled" No meds Surgical History Hx of umbilical hernia repair History of total knee replacement Left 01/2020 Right 2020 S/P colonoscopic polypectomy With general anesthesia; was found on routine colo but felt too large for excision under MAC in endo suite H/O shoulder replacement Left History of arthroscopy left knee History of colonoscopy History of endoscopic sinus surgery nasal polyps History of tonsillectomy Family History Father HLD (hyperlipidemia) Grandfather (Paternal) Cancer Grandmother (Maternal) Stroke Other No family history of adverse response to anesthesia Social History Smoking Status: Never smoker Second Hand Exposure: No; Do You Dip or Chew Tobacco: Yes (advised); Tobacco Cessation Education Requested by Patient: No Hx Alcohol Use: Yes Alcohol type: beer Hx Substance Use: No Preferred Language: Czech Communication Ability: Effective Toolroom Clerk Required: No Beliefs That Will Affect Care: None marital status: Current Living Situation: Spouse current occupational status: employed current occupation: CONSTRUCTION WORK Other Information That Helps Us Care for You: No Feels Safe at Home: Yes Safety Concerns: Feels Safe At This Time Assistive Devices: Glasses Assistive Devices Comment: glasses for driving only Review of Systems Review of Systems: All systems reviewed & are unremarkable except as noted in HPI & below Physical Exam Physical Exam: General- Not n distress Head- atraumatic Eyes- EOMI. ENT- oropharynx clear Neck- supple, no JVD. Lungs- clear to auscultation , no wheezing or crackles. Heart- regular rhythm; no murmur, no gallop. Abdomen- normal bowel sounds, soft, nontender, no distension Extremities- s/p left shoulder surgery. Dressing intact and in sling. Neuro- alert, oriented EOMI; no facial palsy; no dysarthria; moves extremities Results & Data Vital Signs (Past 12 Hours) Vital Signs Temp Pulse Resp BP Pulse Ox O2 Del Method O2 Flow Rate 01/06/24 03:00 37 C 84 18 108/73 93 Room Air 01/05/24 23:00 36.7 C 101 H 18 110/73 93 Room Air 01/05/24 21:30 36.8 C 114 H 18 113/77 96 Room Air 01/05/24 20:38 36.8 C 126 H 18 147/85 H 94 Room Air 01/05/24 20:01 36.8 C 95 H 18 118/78 90 Room Air 01/05/24 19:10 36.5 C 89 21 129/82 98 Nasal Cannula 3 01/05/24 19:00 90 19 151/96 H 98 Nasal Cannula 3 01/05/24 18:50 98 H 18 165/97 H 96 Nasal Cannula 3 01/05/24 18:40 103 H 19 176/100 H 96 Oxymask 5 01/05/24 18:34 36 C L 94 H 18 179/107 H 95 Oxymask 5 Diagnostic Findings Laboratory Results WBC 18.10 K/ul (4.8-10.8) H 01/06/24 05:43 RBC 4.86 M/uL (4.70-6.10) 01/06/24 05:43 Hgb 14.2 g/dl (14.0-18.0) 01/06/24 05:43 Hct 41.7 % (42.0-52.0) L 01/06/24 05:43 MCV 85.8 fL (80.0-100.0) 01/06/24 05:43 MCH 29.2 pg (25.0-34.0) 01/06/24 05:43 MCHC 34.1 g/dL (32.0-36.0) 01/06/24 05:43 RDW Std Deviation 40.2 fL (36.4-46.3) 01/06/24 05:43 RDW Coeff of Sunshine 13.0 % (11.5-14.5) 01/06/24 05:43 Plt Count 323 K/uL (130-400) 01/06/24 05:43 MPV 9.8 fL (9.4-12.4) 01/06/24 05:43 Immature Gran % (Auto) 0.4 % 01/06/24 05:43 Neut % (Auto) 80.4 % 01/06/24 05:43 Lymph % (Auto) 12.9 % 01/06/24 05:43 [place] % (Auto) 6.0 % 01/06/24 05:43 Eos % (Auto) 0.1 % 01/06/24 05:43 Baso % (Auto) 0.2 % 01/06/24 05:43 Neut # (Auto) 14.57 K/uL (1.40-6.50) H 01/06/24 05:43 Lymph # (Auto) 2.33 K/uL (1.20-3.40) 01/06/24 05:43 Fergus # (Auto) 1.09 K/uL (0.11-0.59) H 01/06/24 05:43 Eos # (Auto) 0.01 K/uL (0.00-0.50) 01/06/24 05:43 Baso # (Auto) 0.03 K/uL (0.00-0.20) 01/06/24 05:43 Immature Gran # (Auto) 0.07 K/uL (0.01-0.20) 01/06/24 05:43 Sodium 136 mmol/L (136-145) 01/06/24 05:43 Potassium 4.2 mmol/L (3.5-5.1) 01/06/24 05:43 Chloride 103 mmol/L (98-107) 01/06/24 05:43 Carbon Dioxide 25 mmol/L (21-32) 01/06/24 05:43 Anion Gap 8 (3-11) 01/06/24 05:43 BUN 16 mg/dl (6-23) 01/06/24 05:43 Creatinine 1.04 mg/dl (0.6-1.4) 01/06/24 05:43 Est Cr Clr Drug Dosing 104.4 ml/min 01/06/24 05:43 eGFR 83.23 01/06/24 05:43 BUN/Creatinine Ratio 15.4 (10-20) 01/06/24 05:43 Glucose 131 mg/dl (70-99(Fasting)) H 01/06/24 05:43 Calcium 8.5 mg/dl (8.6-10.3) L 01/06/24 05:43 Blood Type A Positive 01/05/24 09:18 Antibody Screen NEGATIVE 01/05/24 09:18 Impressions Shoulder X-Ray 01/05/24 18:25 XR shoulder LT min 2V routine CLINICAL HISTORY: Post shoulder surgery TECHNIQUE: 3 views of the left shoulder were obtained. Comparison: Comparison is made to left shoulder radiographs 11/27/2022 FINDINGS: Patient is status post shoulder arthroplasty with expected postsurgical changes including soft tissue swelling and subcutaneous emphysema. No periarticular lucency or hardware fracture is seen. IMPRESSION: Expected postoperative appearance status post placement of shoulder arthroplasty. ACT 112: Negative or not required by law. Electronically signed by: Hiro Palma M.D. 01/05/2024 6:44 PM (1) Loosening of total shoulder replacement Encounter type: initial encounter Qualified Code(s): T84.038A - Mechanical loosening of other internal prosthetic joint, initial encounter; Z96.619 - Presence of unspecified artificial shoulder joint
[2024-01-06] MEDS: ATORVASTATIN 10 MG TAB PO SCH (08:03)
[2024-01-06] MEDS: LOSARTAN POTASSIUM 50 MG TAB PO SCH (08:03)
[2024-01-06] MEDS: MULTIVITAMIN TAB PO SCH (08:03)
--- NOTE | 2024-01-06 08:18 | Orthopedic Progress Note ---
Date of Service January 06, 2024 Assessment & Plan (1) Traumatic complete tear of rotator cuff: Plan: Acute traumatic rotator cuff tear status post anatomic total shoulder replacement with evidence of osteolysis of the glenoid and humeral component which were pre-existing to the shoulder injury and rotator cuff tear however this and trauma may have led to loosening of the glenoid. Revision of the anatomic replacement to a reverse total shoulder replacement completed postop day 1. Plan is to discontinue drain discharge home just do home exercises for 2 weeks and then will start PT afterwards. Discussed precautions for reverse shoulder replacement. (2) Loosening of total shoulder replacement: (3) Osteolysis of left shoulder: Admission and Anticipated Discharge Date Admission Date: January 05, 2024 Subjective No pain so far. Still some numbness in his thumb and index finger Review of Systems Review of Systems: Feels well no chest pain shortness of breath Physical Exam Musculoskeletal: Dressing dry and intact. Circulation intact. Some motor function returning to hand. Still under the effect of the nerve block. Patient up walking around and comfortable. Results & Data Vital Signs (Past 12 Hours) Vital Signs Temp Pulse Resp BP Pulse Ox O2 Del Method 01/06/24 07:29 36.9 C 18 127/79 94 Room Air 01/06/24 03:00 37 C 84 18 108/73 93 Room Air 01/05/24 23:00 36.7 C 101 H 18 110/73 93 Room Air 01/05/24 21:30 36.8 C 114 H 18 113/77 96 Room Air 01/05/24 20:38 36.8 C 126 H 18 147/85 H 94 Room Air Laboratory Results Increased white count likely related to stress Diagnostic Findings Implant alignment good position. Normally located implant. (1) Traumatic complete tear of rotator cuff Encounter type: initial encounter Laterality: left Qualified Code(s): S46.012A - Strain of muscle(s) and tendon(s) of the rotator cuff of left shoulder, initial encounter (2) Loosening of total shoulder replacement Encounter type: initial encounter Qualified Code(s): T84.038A - Mechanical loosening of other internal prosthetic joint, initial encounter; Z96.619 - Presence of unspecified artificial shoulder joint
[2024-01-06] MEDS ORDERED: [UNRECOGNIZED DRUG - REMARK] PO SCH (09:00)
[2024-01-06] MEDS: oxyCODONE HCL IR 5 MG TAB (IMMEDIATE RELEASE) PO PRN (12:25)
[2024-01-06] MEDS ORDERED: CeleBREX 200 MG CAP PO SCH (21:00)
--- NOTE | 2024-01-11 14:30 | Discharge Summary ---
Date of Service January 11, 2024 Admission HPI Per Admitting Provider 58-year-old male who had an injury at work when he fell on his outstretched left arm felt as though he dislocated his shoulder. He has had significant pain weakness and inability raise his arm overhead. Minimal improvement since this injury which occurred at work. Patient had index total shoulder replacement procedure on that left shoulder 02/25/2011. Patient denies headaches, sweats, fevers, chills, double vision, blurred vision, cough, sore throat, dysphagia, chest pain, sob, wheezing, n/v/d/c, numbness, tingling, fatigue, urinary symptoms, mood disorders. ROS positive for mild snoring and being difficult intubation with anesthesia Principal Diagnosis Left shoulder loosened total shoulder arthroplasty Discharge Data Allergies Allergy/AdvReac Type Severity Reaction Status Date / Time No Known Allergies Allergy Verified 01/05/24 09:32 Consultations 01/04/24 08:57 Consult Hospitalist Routine Procedures Performed Operation Date: 01/05/24 11:55 Actual Procedures p Left Shoulder Convert a Total Shoulder Arthroplasty to Reverse Total Shoulder Arthroplasty with Extensive Debridement(Left) - Xu Arambula MD Ordered Studies 01/05/24 05:00 US - OR guided needle placemen Routine Hospital Course (1) Traumatic complete tear of rotator cuff: Acute traumatic rotator cuff tear status post anatomic total shoulder replacement with evidence of osteolysis of the glenoid and humeral component which were pre-existing to the shoulder injury and rotator cuff tear however this and trauma may have led to loosening of the glenoid. Revision of the anatomic replacement to a reverse total shoulder replacement completed postop day 1. Plan is to discontinue drain discharge home just do home exercises for 2 weeks and then will start PT afterwards. Discussed precautions for reverse shoulder replacement. (2) Loosening of total shoulder replacement: (3) Osteolysis of left shoulder: Total Time Total Time Spent Total Time Spent (In Minutes): 20 Discharge Plan Discharge Items Patient Disposition: Home - Self-Care Reason For Visit: Loosening Left Total Shoulder Arthroplasty Discharge Diagnosis: Left shoulder loosened total shoulder arthroplasty Activity: Per Instructions section Non-emergency contact: Surgeon Call non-emergency contact if: your pain is not controlled, your pain is worsening and your temperature is above 101 Follow-up/Referrals: Marya Faye DO [Primary Care Provider] - Diet: Regular Addtl Attending Provider Instructions: ACTIVITY RECOMMENDATIONS: SELF CARE INSTRUCTIONS AFTER TOTAL SHOULDER ARTHROPLASTY REVERSE A. You may do daily exercises as taught in physical therapy while in hospital. No lifting with the operative arm. B. You are to wear your sling/immobilizer at all times EXCEPT when performing your daily exercises and for hygiene purposes. C. You may perform dry, daily dressing changes. Please keep your incision covered. You may shower 48 hours after surgery. Do not apply soap or any ointment/lotions directly over incision. Do not soak incision in bath tub/swimming pool. D. You may use ice as needed to operative shoulder. E. You may resume previous diet. SPECIAL CARE INSTRUCTIONS: VERY IMPORTANT TO READ AND REVIEW A. There are a few signs you need to watch for after you are home. Call [facility] at [phone] if you experience any of the followin. Increased severe shoulder pain. Some pain is expected especially when you exercise. 2. Increased swelling in you shoulder or arm; pain or swelling in either upper extremity. 3. Any fluid drainage from the incision. 4. Shortness of breath or chest pain. B. Please call [facility] at [phone] if you have any questions or concerns about your operation or recovery. C. Call your physician if: 1. Temperature is greater than 101 degrees (F). 2. Pain is not relieved by prescribed pain medications. 3. Increase drainage or redness from incision. 4. Unanswered questions or concerns. FOLLOW UP VISIT: Please call [facility] at [phone] to schedule a follow up appointment with Dr. Arambula or his PA in 12-14 days from your surgery date. Pending Studies at Discharge: No Stand-Alone Forms: My [facility] [employer], Smoking Cessation Medications and DC Order Prescriptions: New acetaminophen [Tylenol Extra Strength] 500 mg Tablet 1,000 mg PO Q8 Qty: 90 0RF aspirin [Ecotrin] 325 mg Tablet,Delayed Release (Dr/Ec) 325 mg PO BID Qty: 60 0RF celecoxib [Celebrex] 200 mg Capsule 200 mg PO BID Qty: 60 0RF oxycodone 5 mg Tablet 5 mg PO Q4H PRN (Reason: pain) Qty: 20 0RF cefadroxil 500 mg capsule 500 mg PO Q12H Qty: 28 0RF Continued losartan 50 mg Tablet 50 mg PO QAM atorvastatin 10 mg Tablet 10 mg PO QAM Allergy Tab 1 tab PO DAILY Discontinued acetaminophen 500 mg tablet 1,000 mg PO Q8H PRN (Reason: Pain) Discharge Orders: Discharge Order (Routine); Ordered 01/06/24 Ordered By: Xu Arambula Admission Data Admit Date/Time: 01/05/24 18:25 Attending Provider: Xu Arambula Admit Provider: Xu Arambula Primary Care Provider: Marya Faye Other Providers: Bridger Valadez Other Interventions: Discharge Summary Assessment (RN) Last Done: 01/06/24 09:48
== END 2024-01-06 13:10 | disposition home or self-care (01) ==
LOC: 3E 08:49 → ASU 08:49